=== PATIENT | male | born 1965 | race Caucasian/White ===

== ENCOUNTER 2017-02-19 15:58 | Inpatient (IN) | payer OTHER ==
[~2017-02-19] VITALS: Ht 180.3 cm; Wt 75.2 kg
[~2017-02-19 15:58] MED LIST: LISI-360 PO; LORTA5 PO; NEVI200 PO; PAXI20TA26 PO; VALA1TAB PO; ZYPR10TA PO; [UNRECOGNIZED DRUG - CODE]; trilipix; truvada PO
[2017-02-19 16:02] VITALS: BP 123/77; PULSE 110; RESP 16; TEMP 98; O2SAT 100
--- NOTE | 2017-02-19 16:40 | PD ---
Physical Exam Time Seen by Provider: 16:31 Narrative 51yo M c/o increased tremors, confusion, and difficulty finding words w/ worsening since Thursday. Is on psych medications that cause tremors; Seroquel and [place]. Denies pain including MADRID. Confused to year and month in triage. No midline drift, facial droop, and weakness noted in triage. Ambulatory w. normal gait in triage. Tremulous in triage. Patient seen in triage. VS reviewed. Awaiting bed placement. Data Data Last Documented VS Vital Signs Date Time Temp Pulse Resp B/P Pulse Ox O2 Delivery O2 Flow Rate FiO2 02/19/17 16:02 98.0 110 16 123/77 100 Room Air MDM Supervised Visit with YOLIS: Monie Rhoades Feb 19, 2017 16:40
[2017-02-19 17:16] VITALS: RESP 18; O2SAT 99
--- NOTE | 2017-02-19 17:16 | PD ---
HPI Chief Complaint: Altered Mental Status Time Seen by Provider: 17:16 Travel History International Travel<30 days: No Contact w/Intl Traveler<30days: No Traveled to known affect area: No History of Present Illness HPI 51-year-old male came to the emergency room with history of progressive incoordination and disequilibrium. Increase forgetfulness. All the symptoms have suddenly escalated over the past 3 days. Patient is noticing difficulty ambulating as well as doing simple activities like drinking water since he is spilling it since he is so shaky. His family is here with him raising concerns. He has history of psychiatric disorders and is on psych medications including lithium. Patient was tachycardic in the emergency room with his heart rate in 1 teens. Patient is awake and trying to answer questions but was very slow. [facility] Past Medical History Narrative Medical List of his past medical, surgical, social and family history was reviewed from the nursing note. Blood Disorders: No Anxiety: Yes Depression: Yes Cancer: Yes (skin cancer) Cardiovascular Problems: No Endocrine: No Genitourinary: No Immune Disorder: No (hivt) Neurologic: No Reproductive: No Respiratory: No Past Surgical History Oral Surgery: Yes (tonsillectomy and wisdom teeth removed) Social History Alcohol Use: Yes (wine occ several times per week) Tobacco Use: No Substance Use: No Allergies-Medications (Allergen,Severity, Reaction): Coded Allergies: No Known Allergies (Verified , 02/19/17) Comments No known drug allergies. Reported Meds & Prescriptions Reported Meds & Active Scripts Active Reported Viramune (Nevirapine) 200 Mg Tab 200 Mg PO BID Bupropion HCl ER 12 HR (Bupropion HCl) 100 Mg Tab 100 Mg PO DAILY May increase to twice a day if needed Hydrochlorothiazide 25 Mg Tab 12.5 Mg PO DAILY [trilipix] 135 Mg DAILY [truvada] PO DAILY Narrative Medication List of his home medications reviewed from the nursing note. Review of Systems Except as stated in HPI: all other systems reviewed are Neg Physical Exam Narrative GENERAL: Awake, alert, moderate distress SKIN: Focused skin assessment warm/dry. HEAD: Atraumatic. Normocephalic. EYES: Pupils equal and round. No scleral icterus. No injection or drainage. ENT: No nasal bleeding or discharge. Dry mucous membrane and coated tongue. NECK: Trachea midline. No JVD. CARDIOVASCULAR: Regular rate and rhythm. No murmur appreciated. RESPIRATORY: No accessory muscle use. Clear to auscultation. Breath sounds equal bilaterally. GASTROINTESTINAL: Abdomen soft, non-tender, nondistended. Hepatic and splenic margins not palpable. MUSCULOSKELETAL: No obvious deformities. No clubbing. No cyanosis. No edema. NEUROLOGICAL: Awake and alert. No obvious cranial nerve deficits. Motor grossly within normal limits. Normal speech. Poorly coordinated gait and ataxia. Poor finger-nose test bilaterally with bilateral ataxia. PSYCHIATRIC: Appropriate mood and affect; insight and judgment normal. Data Data Last Documented VS Vital Signs Date Time Temp Pulse Resp B/P Pulse Ox O2 Delivery O2 Flow Rate FiO2 02/19/17 17:16 18 99 Room Air 02/19/17 16:02 98.0 110 123/77 Orders Blood Glucose (02/19/17 16:37) Oximetry (02/19/17 16:37) Iv Access Insert/Monitor (02/19/17 16:37) Ecg Monitoring (02/19/17 16:37) Oxygen Administration (02/19/17 16:37) Complete Blood Count With Diff (02/19/17 16:37) Basic Metabolic Panel (Bmp) (02/19/17 16:37) Ammonia (02/19/17 16:37) Lactic Acid (02/19/17 16:37) Blood Culture (02/19/17 16:37) Urinalysis - C+S If Indicated (02/19/17 16:37) Act Partial Throm Time (Ptt) (02/19/17 16:37) Hepatic Functional Panel (02/19/17 17:28) [place] (Li) (02/19/17 17:28) Ct Brain W/O Iv Contrast(Rout) (02/19/17 ) Sodium Chlor 0.9% 1000 Ml Inj (Ns 1000 M (02/19/17 17:30) Sodium Chlor 0.9% 1000 Ml Inj (Ns 1000 M (02/19/17 17:30) Prothrombin Time / Inr (Pt) (02/19/17 17:28) Protein Corrected Calcium(Pcc) (02/19/17 16:55) Urinary Catheter Insert/Apply (02/19/17 18:26) Admit Order (Ed Use Only) (02/19/17 18:43) Labs Laboratory Tests Test 602/19/17 02/19/17 16:50 16:55 17:45 Urine Color YELLOW Urine Turbidity CLEAR Urine pH 6.5 Urine Specific [place] 1.014 Urine Protein 30 mg/dL Urine Glucose (UA) 300 mg/dL Urine Ketones NEG mg/dL Urine Occult Blood NEG Urine Nitrite NEG Urine Bilirubin NEG Urine Urobilinogen LESS THAN 2.0 MG/DL Urine Leukocyte Esterase NEG Urine RBC LESS THAN 1 /hpf Urine WBC 3 /hpf Urine Squamous Epithelial <1 /hpf Cells Microscopic Urinalysis Comment CULT NOT INDICATED White Blood Count 7.9 TH/MM3 Red Blood Count 4.22 MIL/MM3 Hemoglobin 14.5 GM/DL Hematocrit 43.1 % Mean Corpuscular Volume 102.1 FL Mean Corpuscular Hemoglobin 34.4 PG Mean Corpuscular Hemoglobin 33.7 % Concent Red Cell Distribution Width 12.8 % Platelet Count 343 TH/MM3 Mean Platelet Volume 7.1 FL Neutrophils (%) (Auto) 71.4 % Lymphocytes (%) (Auto) 18.9 % Monocytes (%) (Auto) 7.4 % Eosinophils (%) (Auto) 1.9 % Basophils (%) (Auto) 0.4 % Neutrophils # (Auto) 5.7 TH/MM3 Lymphocytes # (Auto) 1.5 TH/MM3 Monocytes # (Auto) 0.6 TH/MM3 Eosinophils # (Auto) 0.1 TH/MM3 Basophils # (Auto) 0.0 TH/MM3 CBC Comment DIFF FINAL Differential Comment Prothrombin Time 10.2 SEC Prothromb Time International 0.9 RATIO Ratio Activated Partial 27.3 SEC Thromboplast Time Sodium Level 130 MEQ/L Potassium Level 4.7 MEQ/L Chloride Level 95 MEQ/L Carbon Dioxide Level 25.9 MEQ/L Anion Gap 9 MEQ/L Blood Urea Nitrogen 114 MG/DL Creatinine 9.42 MG/DL Estimat Glomerular Filtration 6 ML/MIN Rate Random Glucose 112 MG/DL Lactic Acid Level 0.7 mmol/L Calcium Level 14.1 MG/DL Protein Corrected Calcium 12.8 MG/DL Total Bilirubin 0.3 MG/DL Direct Bilirubin 0.1 MG/DL Indirect Bilirubin 0.2 MG/DL Aspartate Amino Transf 21 U/L (AST/SGOT) Alanine Aminotransferase 39 U/L (ALT/SGPT) Alkaline Phosphatase 104 U/L Ammonia 21 MCMOL/L Total Protein 8.7 GM/DL Albumin 4.9 GM/DL [place] Level 2.9 MEQ/L MDM Medical Decision Making Medical Screen Exam Complete: Yes Emergency Medical Condition: Yes Medical Record Reviewed: Yes Differential Diagnosis Lifting toxicity, acute renal failure, dehydration, intracranial tumor, CVA Narrative Course 6:32 PM blood test results of back and patient is in acute renal failure. My suspicion is extremely high for lithium toxicity. Waiting for lithium level to return. Patient is hyponatremic, hypochloremic and hypocalcemic. I just spoke with Dr. Chino from nephrology and have requested for an emergent dialysis. He wants the batch freezer to get an access. He will put the orders for dialysis. Awaiting for the batch freezer to call back. I have asked the nurse to put in a Mcgee catheter. Critical Care Narrative Aggregate critical care time was 45 minutes. Time to perform other separately billable procedures was not included in the critical care time. My time did not include minutes spent treating any other patients simultaneously or on activities that did not directly contribute to the patient's treatment. The services I provided to this patient were to treat and/or prevent clinically significant deterioration that could result in: Acute renal failure, lithium toxicity, hypercalcemia, dialysis I provided critical care services requiring my management, as noted below: Chart data review, documentation time, medication orders and management, vital sign assessments/reviewing monitor data, ordering and reviewing lab tests, ordering and interpreting/reviewing x-rays and diagnostic studies, care of the patient and discussion of the patient with the admitting physicians. Procedures EKG Prior to Arrival: No Physician Communication Physician Communication Dr. Chino Diagnosis Primary Impression: Acute renal failure Qualified Code: N17.9 - Acute renal failure, unspecified acute renal failure type Additional Impressions: Gait disturbance [place] toxicity Qualified Code: T56.894A - [place] toxicity, undetermined intent, initial encounter Hypercalcemia Hyponatremia Admitting Information Admitting Physician Requests: it Lucila Moseley MD Feb 19, 2017 17:16
[2017-02-19 17:24] LABS: AUTOMATED NEUTROPHIL # 5.7 TH/MM3 (1.8-7.7); BASOPHIL % 0.4 % (0.0-2.0); EOSINOPHIL # 0.1 TH/MM3 (0-0.4); EOSINOPHIL % 1.9 % (0.0-4.0); HEMATOCRIT 43.1 % (39.0-51.0); HEMO FLAGS DIFF FINAL; LYMPH % 18.9 % (9.0-44.0); LYMPHOCYTE # 1.5 TH/MM3 (1.0-4.8); MEAN CELL VOLUME 102.1 FL (80.0-100.0); MEAN CORPUSCULAR HEMOGLOBIN 34.4 PG (27.0-34.0); MEAN CORPUSCULAR HGB CONC 33.7 % (32.0-36.0); MONO % 7.4 % (0.0-8.0); NEUT % 71.4 % (16.0-70.0); PLATELET COUNT 343 TH/MM3 (150-450); RED BLOOD COUNT 4.22 MIL/MM3 (4.50-5.90); RED CELL DISTRIBUTION WIDTH 12.8 % (11.6-17.2); WHITE BLOOD COUNT 7.9 TH/MM3 (4.0-11.0)
[2017-02-19] MEDS ORDERED: SODIUM CHLOR 0.9% 1000 ML INJ 1,000 ML IV ONE ×2 (17:30)
[2017-02-19 17:34] LABS: BLOOD, URINE NEG (NEG); COMMENT (UR) CULT NOT INDICATED; CULTURE IF INDICATED CULT NOT INDICATED; GLUCOSE,URINE 300 mg/dL (NEG); KETONE, URINE NEG (NEG); NITRITE,URINE NEG (NEG); PH, URINE 6.5 (5.0-8.5); SQUAMOUS EPITHELIAL CELL URINE <1 /hpf (0-5); URINE COLOR YELLOW (YELLW/STRAW)
[2017-02-19 17:39] LABS: APTT (PATIENT) 27.3 SEC (24.3-30.1)
[2017-02-19 17:57] LABS: INTERNATIONAL NORMALIZED RATIO 0.9 RATIO; PROTHROMBIN TIME - PATIENT 10.2 SEC (9.8-11.6)
[2017-02-19 18:04] LABS: BICARBONATE 25.9 MEQ/L (21.0-32.0); POTASSIUM 4.7 MEQ/L (3.5-5.1)
[2017-02-19] MEDS ORDERED: LISI10TA3 PO (18:18)
[2017-02-19] MEDS ORDERED: HYDR25TA5 PO (18:18)
[2017-02-19] MEDS ORDERED: BUPR100T PO (18:18)
[2017-02-19] MEDS ORDERED: VIRA200T PO (18:19)
[2017-02-19 18:25] LABS: INDIRECT BILIRUBIN 0.2 MG/DL (0.0-0.8); TOTAL BILIRUBIN ADULT 0.3 MG/DL (0.2-1.0)
[2017-02-19 18:28] LABS: CALCIUM-PROTEIN CORRECTED 12.8 MG/DL (8.5-10.1)
[2017-02-19] MEDS ORDERED: SODIUM CHLOR 0.9% 1000 ML INJ 1,000 ML IV PRN ×3 (18:48)
[2017-02-19] MEDS ORDERED: SODIUM CHLORIDE 0.9% FLUSH 10 ML FLUSH IV FLUSH PRN (19:00)
[2017-02-19] MEDS ORDERED: ALBUMIN HUMAN 25% 25 GM/100 ML BAGP IV PRN (19:00)
[2017-02-19] MEDS ORDERED: GELATIN 12 MM/7 MM FOAM TOP PRN (19:00)
[2017-02-19] MEDS ORDERED: MANNITOL 12.5 GM/50 ML VIAL IV PRN (19:00)
[2017-02-19] MEDS ORDERED: diphenhydrAMINE HCL 25 MG CAP PO PRN (19:00)
[2017-02-19] MEDS ORDERED: ONDANSETRON HCL 4 MG/2 ML VIAL IV PRN ×2 (19:00→19:15)
[2017-02-19] MEDS ORDERED: HEPARIN SODIUM - IV 10,000 UNITS/10 ML VIAL PRN (19:00)
[2017-02-19] MEDS ORDERED: NITROGLYCERIN 0.4 MG SL 25 TABS/BTL SL PRN (19:00)
[2017-02-19] MEDS ORDERED: ACETAMINOPHEN 325 MG TAB PO PRN ×2 (19:00→19:15)
[2017-02-19] MEDS ORDERED: cloNIDine HCL 0.1 MG TAB PO PRN (19:00)
[2017-02-19] MEDS ORDERED: HEPARIN SODIUM - IV 10,000 UNITS/10 ML VIAL IVF PRN (19:00)
[2017-02-19] MEDS ORDERED: GENTAMICIN SULFATE (DIALYSIS USE ONLY) 20 MG/2 ML VIAL IV PRN (19:00)
--- NOTE | 2017-02-19 19:00 | PD.CONS ---
HPI Service Nephrology Consult Requested By Dr. Moseley Reason for Consult [place] toxicity and renal failure Primary Care Physician Taz Gray MD History of Present Illness Patient is a 51-year-old white male with history of psychiatric disorders, on lithium, for 3 days he has been feeling "shaky unable to grab a glass of water and unable to eat or drink probably he was unable to stand he has severe disequilibrium and brought to the emergency room with these complaints, his lithium level is 2.9, he has tremulousness and all the extremities are shaking while he is laying in the bed the he was earlier confused he is more alert and able to tell me his age. Review of Systems Neurologic: COMPLAINS OF: Abnormal gait, Speech Problems, Tremor, Poor Balance Psychiatric: COMPLAINS OF: Anxiety, Depression, Agitation Past Family Social History Allergies: Coded Allergies: No Known Allergies (Verified , 02/19/17) Past Medical History Psychiatric disorder HIV Past Surgical History Laminectomy [place] tooth removal Tonsillectomy Reported Medications Reported Meds & Active Scripts Active Reported Viramune (Nevirapine) 200 Mg Tab 200 Mg PO BID Bupropion HCl ER 12 HR (Bupropion HCl) 100 Mg Tab 100 Mg PO DAILY May increase to twice a day if needed Hydrochlorothiazide 25 Mg Tab 12.5 Mg PO DAILY [trilipix] 135 Mg DAILY [truvada] PO DAILY Family History Noncontributory Social History He drinks wine 3 times a week Denies smoking Physical Exam Vital Signs Vital Signs Date Time Temp Pulse Resp B/P Pulse Ox O2 Delivery O2 Flow Rate FiO2 02/19/17 17:16 18 99 Room Air 02/19/17 17:16 99 Room Air 02/19/17 16:02 98.0 110 16 123/77 100 Room Air Physical Exam GENERAL: Well-nourished, well-developed patient. SKIN: Warm and dry. HEAD: Normocephalic. EYES: No scleral icterus. No injection or drainage. NECK: Supple, trachea midline. No JVD or lymphadenopathy. CARDIOVASCULAR: Tachycardic RESPIRATORY: Breath sounds equal bilaterally. No accessory muscle use. GASTROINTESTINAL: Abdomen soft, non-tender, nondistended. EXTREMITIES: No cyanosis, or edema. NEUROLOGICAL: Awake, alert, tremulousness, tremors all over extremities Laboratory Laboratory Tests Test 02/19/17 02/19/17 02/19/17 16:50 16:55 17:45 Urine Color YELLOW Urine Turbidity CLEAR Urine pH 6.5 Urine Specific [place] 1.014 Urine Protein 30 Urine Glucose (UA) 300 Urine Ketones NEG Urine Occult Blood NEG Urine Nitrite NEG Urine Bilirubin NEG Urine Urobilinogen LESS THAN 2.0 Urine Leukocyte Esterase NEG Urine RBC LESS THAN 1 Urine WBC 3 Urine Squamous Epithelial <1 Cells Microscopic Urinalysis Comment CULT NOT INDICATED White Blood Count 7.9 Red Blood Count 4.22 Hemoglobin 14.5 Hematocrit 43.1 Mean Corpuscular Volume 102.1 Mean Corpuscular Hemoglobin 34.4 Mean Corpuscular Hemoglobin 33.7 Concent Red Cell Distribution Width 12.8 Platelet Count 343 Mean Platelet Volume 7.1 Neutrophils (%) (Auto) 71.4 Lymphocytes (%) (Auto) 18.9 Monocytes (%) (Auto) 7.4 Eosinophils (%) (Auto) 1.9 Basophils (%) (Auto) 0.4 Neutrophils # (Auto) 5.7 Lymphocytes # (Auto) 1.5 Monocytes # (Auto) 0.6 Eosinophils # (Auto) 0.1 Basophils # (Auto) 0.0 CBC Comment DIFF FINAL Differential Comment Prothrombin Time 10.2 Prothromb Time International 0.9 Ratio Activated Partial 27.3 Thromboplast Time Sodium Level 130 Potassium Level 4.7 Chloride Level 95 Carbon Dioxide Level 25.9 Anion Gap 9 Blood Urea Nitrogen 114 Creatinine 9.42 Estimat Glomerular Filtration 6 Rate Random Glucose 112 Lactic Acid Level 0.7 Calcium Level 14.1 Protein Corrected Calcium 12.8 Total Bilirubin 0.3 Direct Bilirubin 0.1 Indirect Bilirubin 0.2 Aspartate Amino Transf 21 (AST/SGOT) Alanine Aminotransferase 39 (ALT/SGPT) Alkaline Phosphatase 104 Ammonia 21 Total Protein 8.7 Albumin 4.9 [place] Level 2.9 Date/Time Procedure Status Source Growth 02/19/17 17:00 Aerobic Blood Culture Received Blood Peripheral Pending 02/19/17 17:00 Anaerobic Blood Culture Received Blood Peripheral Pending Result Diagram: 02/19/[id number]/19/171654 Assessment and Plan Problem List: (1) Acute renal failure Plan: ARF Unknown etiology he appears to be dehydrated getting hydration, will check kidney ultrasound He needs emergent hemodialysis as he has lithium toxicity and his symptomatic, I discussed with him he is now alert and responsive understands the procedure and Agreed to proceed with hemodialysis. I discussed with Dr. Dela Cruz and Dr. Moseley. 10 pm seen during hemodialysis tolerating [place] 2.9 ordered F 20 QB 400 Follow [place] level (2) [place] toxicity Plan: Admission lithium level 2.9 (3) Hyponatremia Plan: Likely due to renal failure and lithium toxicity (4) Gait disturbance Plan: [place] toxicity (5) Hypercalcemia Plan: likely dehydration Problem Qualifiers (1) Acute renal failure: Qualified Code: N17.9 - Acute renal failure, unspecified acute renal failure type (2) [place] toxicity: Qualified Code: T56.894A - [place] toxicity, undetermined intent, initial encounter Liyah Marin MD Feb 19, 2017 19:00
[2017-02-19] MEDS ORDERED: MORPHINE SULFATE 4 MG/ML INJ IV PRN (19:15)
[2017-02-19] MEDS ORDERED: ZOLPIDEM TARTRATE 5 MG TAB PO PRN (19:15)
[2017-02-19] MEDS ORDERED: SODIUM CHLORIDE 0.9% FLUSH 10 ML FLUSH PRN (19:15)
[2017-02-19] MEDS ORDERED: LACTULOSE SYRUP 20 GM/30 ML CUP PO PRN (19:15)
[2017-02-19] MEDS ORDERED: SENNOSIDES 8.6 MG TAB PO PRN (19:15)
[2017-02-19] MEDS ORDERED: MISCELLANEOUS NURSING INFORMATION XX SCH (19:15)
[2017-02-19] MEDS ORDERED: METOCLOPRAMIDE HCL 10 MG/2 ML VIAL IV PRN (19:15)
[2017-02-19] MEDS ORDERED: MAGNESIUM HYDROXIDE SUSP 30 ML CUP PO PRN (19:15)
[2017-02-19] MEDS ORDERED: RESP: ALBUTEROL 2.5 MG/IPRATROPIUM 0.5 MG NEB (PRN) INH (19:15)
[2017-02-19] MEDS ORDERED: PROCHLORPERAZINE 25 MG SUPP RECTAL PRN (19:15)
[2017-02-19] MEDS ORDERED: BISACODYL 10 MG SUPP RECTAL PRN (19:15)
[2017-02-19] MEDS ORDERED: LORazepam 2 MG/ML VIAL IV PRN (19:15)
[2017-02-19] MEDS ORDERED: CHLORHEXIDINE GLUCONATE 2 % 1 PACK (2 CLOTHS) TOP PRN (19:15)
--- NOTE | 2017-02-19 19:23 | RADRPT ---
EXAM DATE/TIME: 02/19/2017 19:05 [facility] COMPARISON: No previous studies available for comparison. INDICATIONS : Altered mental status. Difficulty ambulating and tremors. RADIATION DOSE: 42.47 CTDIvol (mGy) MEDICAL HISTORY : Hypertension. HIV. Kidney failure. SURGICAL HISTORY : None. ENCOUNTER: Initial ACUITY: 1 day PAIN SCALE: 0/10 LOCATION: cranial TECHNIQUE: Multiple contiguous axial images were obtained of the head. Using automated exposure control and adj ustment of the mA and/or kV according to patient size, radiation dose was kept as low as reasonably a chievable to obtain optimal diagnostic quality images. FINDINGS: CEREBRUM: The ventricles are normal for age. No evidence of midline shift, mass lesion, hemorrhage or acute in farction. No extra-axial fluid collections are seen. POSTERIOR FOSSA: The cerebellum and brainstem are intact. The 4th ventricle is midline. The cerebellopontine angle i s unremarkable. EXTRACRANIAL: The visualized portion of the orbits is intact. SKULL: The calvaria is intact. No evidence of skull fracture. CONCLUSION: Negative noncontrast head CT. Unruly Valera MD on February 19, 2017 at 19:21 Board Certified Radiologist. This report was verified electronically.
[2017-02-19 19:32] VITALS: BP 117/86; PULSE 97; RESP 24; TEMP 98.1; O2SAT 99
--- NOTE | 2017-02-19 19:53 | RADRPT ---
EXAM DATE/TIME: 02/19/2017 19:13 [facility] COMPARISON: No previous studies available for comparison. INDICATIONS : Increased BUN/creatinine. MEDICAL HISTORY : Head trauma. HTN. Tremors. Gait problems. Bipolar disorder. Depression. Anxiety. Skin cancer. HIV+. SURGICAL HISTORY : Tonsillectomy. Laminecotmy. ENCOUNTER: Initial ACUITY: 1 day PAIN SCORE: 0/10 LOCATION: Bilateral flank MEASUREMENTS: RIGHT KIDNEY: 10.8 x 4.4 x 5.8 cm LEFT KIDNEY: 11.0 x 5.0 x 5.8 cm FINDINGS: RIGHT KIDNEY: Renal cortex is normal in thickness and echotexture. No hydronephrosis, stone, or mass. LEFT KIDNEY: Renal cortex is normal in thickness and echotexture. No hydronephrosis, stone, or mass. BLADDER: Mcgee. Grossly unremarkable. CONCLUSION: Renal ultrasound within normal limits. Unruly Valera MD on February 19, 2017 at 19:51 Board Certified Radiologist. This report was verified electronically.
[2017-02-19] MEDS: SODIUM CHLOR 0.9% 1000 ML INJ 1,000 ML IV SCH (19:54)
[2017-02-19 20:42] VITALS: BP 130/78; PULSE 95; RESP 16; O2SAT 100
--- NOTE | 2017-02-19 20:56 | RADRPT ---
EXAM DATE/TIME: 02/19/2017 20:36 [facility] COMPARISON: No previous studies available for comparison. INDICATIONS : Dialysis jugular placement. MEDICAL HISTORY : Head trauma. HTN. Tremors. Gait problems. Bipolar disorder. Depression.Anxiety. Skin cancer. HIV+. SURGICAL HISTORY : Tonsillectomy. Laminecotmy. ENCOUNTER: Initial ACUITY: 1 day PAIN SCORE: 0/10 LOCATION: Bilateral chest FINDINGS: A single view of the chest demonstrates the lungs to be symmetrically aerated without evidence of mas s, infiltrate or effusion. The cardiomediastinal contours are unremarkable. Osseous structures are intact. There is a right internal jugular large caliber central venous catheter with tip in the superior vena cava. CONCLUSION: Right IJ line tip is in the superior vena cava. No evidence of acute cardiopulmonary disease. No pneu mothorax or other acute complication demonstrated. Unruly Valera MD on February 19, 2017 at 20:53 Board Certified Radiologist. This report was verified electronically.
[2017-02-19 21:00] VITALS: BP 131/81; PULSE 92; PULSE 94; RESP 22; TEMP 98.3; O2SAT 97
[2017-02-19] MEDS: SODIUM CHLORIDE 0.9% FLUSH 10 ML FLUSH SCH (21:00)
[2017-02-19] MEDS: DOCUSATE SODIUM 50 MG/SENNA 8.6 MG TAB PO SCH (21:00)
--- NOTE | 2017-02-19 21:27 | HHI.HP ---
[facility] Service Critical Care Medicine Primary Care Physician Tza Gray MD Admission Diagnosis acute renal failure, lithium toxicity Diagnosis: Travel History International Travel<30 Days: No Contact w/Intl Traveler <30 Da: No Traveled to Known Affected Are: No History of Present Illness 51-year-old male came to the emergency room with history of progressive incoordination and disequilibrium. Increase forgetfulness. All the symptoms have suddenly escalated over the past 3 days. Patient has been noticing difficulty ambulating as well as doing simple activities like drinking water since he is spilling it since he is so shaky. In the emergency department he was found to be tachycardic, and shivering. His laboratory workup revealed acute kidney failure with creatinine of 9 and elevated lithium level. He is admitted to critical care unit, dialysis catheter was placed emergently and patient is undergoing urgent hemodialysis. Review of Systems Constitutional: DENIES: Diaphoretic episodes, Fatigue, Fever, Weight gain, Weight loss, Chills, Dizziness, Change in appetite, Night Sweats Endocrine: DENIES: Heat/cold intolerance, Polydipsia, Polyuria, Polyphagia Eyes: DENIES: Blurred vision, Diplopia, Eye inflammation, Eye pain, Vision loss , Photosensitivity, Double Vision Ears, nose, mouth, throat: DENIES: Tinnitus, Hearing loss, Vertigo, Nasal discharge, Oral lesions, Throat pain, Hoarseness, Ear Pain, Running Nose, Epistaxis, Sinus Pain, Toothache, Odynophagia Respiratory: DENIES: Apneas, Cough, Snoring, Wheezing, Hemoptysis, Sputum production, Shortness of breath Cardiovascular: DENIES: Chest pain, Palpitations, Syncope, Dyspnea on Exertion , PND, Lower Extremity Edema, Orthopnea, Claudication Gastrointestinal: DENIES: Abdominal pain, Black stools, Bloody stools, Constipation, Diarrhea, Nausea, Vomiting, Difficulty Swallowing, Anorexia Genitourinary: DENIES: Sexual dysfunction, Urinary frequency, Urinary incontinence, Urgency, Hematuria, Dysuria, Nocturia, Penile Discharge, Testicular Pain, Testicular Swelling Musculoskeletal: DENIES: Joint pain, Muscle aches, Stiffness, Joint Swelling, Back pain, Neck pain Integumentary: DENIES: Abnormal pigmentation, Nail changes, Pruritus, Rash Hematologic/lymphatic: DENIES: Bruising, Lymphadenopathy Immunologic/allergic: DENIES: Eczema, Urticaria Neurologic: COMPLAINS OF: Abnormal gait, Tremor, Poor Balance, DENIES: Headache, Localized weakness, Paresthesias, Seizures, Speech Problems Psychiatric: COMPLAINS OF: Depression, DENIES: Anxiety, Confusion, Mood changes, Hallucinations, Agitation, Suicidal Ideation, Homicidal Ideation, Delusions Past Family Social History Allergies: Coded Allergies: No Known Allergies (Verified , 02/19/17) Past Medical History Depressions Anxiety Dyslipidemia Hypertension HIV Past Surgical History [place] teeth removal Tonsillectomy Reported Medications Reported Meds & Active Scripts Active Reported Viramune (Nevirapine) 200 Mg Tab 200 Mg PO BID Bupropion HCl ER 12 HR (Bupropion HCl) 100 Mg Tab 100 Mg PO DAILY May increase to twice a day if needed Hydrochlorothiazide 25 Mg Tab 12.5 Mg PO DAILY [trilipix] 135 Mg DAILY [truvada] PO DAILY Active Ordered Medications Current Medications Medications (Trade) Dose Ordered Sig/Mitra Route PRN Reason Start Time Stop Time Status Last Admin Dose Admin Sodium Chloride (NS 1000 ml Inj) 1,000 ml @ 0 mls/hr Q0M PRN IV For Prime & Rinse Back 02/19/17 18:48 Heparin Sodium (Porcine) 8000 units 8,000 units UNSCH PRN IVF WITH DIALYSIS 02/19/17 19:00 Sodium Chloride 1,000 ml @ 200 mls/hr Q5H PRN IV WITH DIALYSIS 02/19/17 18:48 Sodium Chloride (NS 1000 ml Inj) 1,000 ml @ 0 mls/hr Q0M PRN IV WITH DIALYSIS 02/19/17 18:48 Mannitol (Mannitol Inj) 12.5 gm UNSCH PRN IV WITH DIALYSIS 02/19/17 19:00 Albumin Human (Albumin 25% Inj) 25 gm UNSCH PRN IV WITH DIALYSIS 02/19/17 19:00 Sodium Chloride (NS Flush) 5 ml UNSCH PRN IV FLUSH WITH DIALYSIS 02/19/17 19:00 Heparin Sodium (Porcine) (Heparin Inj) UNSCH PRN .XX WITH DIALYSIS 02/19/17 19:00 Gentamicin Sulfate (Gentamicin (Dialysis) Inj) 20 mg UNSCH PRN IV WITH DIALYSIS 02/19/17 19:00 Ondansetron HCl (Zofran Inj) 4 mg UNSCH PRN IV WITH DIALYSIS 02/19/17 19:00 Acetaminophen (Tylenol) 650 mg UNSCH PRN PO for MADRID, pain, temp > 101F 02/19/17 19:00 Diphenhydramine HCl (Benadryl) 25 mg UNSCH PRN PO for hives/itching/anaphylaxis 02/19/17 19:00 Nitroglycerin (Nitrostat Sl) 0.4 mg UNSCH PRN SL CHEST PAIN 02/19/17 19:00 Clonidine (Catapres) 0.1 mg UNSCH PRN PO for BP > 180/100 X 2 readings 02/19/17 19:00 Gelatin 1 foam 1 foam UNSCH PRN TOP SEE LABEL COMMENTS 02/19/17 19:00 Sodium Chloride (NS 1000 ml Inj) 1,000 ml @ 84 mls/hr [id number] IV 02/19/17 19:02 02/19/17 19:54 Sodium Chloride (NS Flush) 2 ml UNSCH PRN .XX FLUSH AFTER USING IV ACCESS 02/19/17 19:15 Sodium Chloride (NS Flush) 2 ml BID .XX 02/19/17 21:00 Acetaminophen (Tylenol) 650 mg Q6H PRN PO PAIN 1-5 AND/OR FEVER >101F 02/19/17 19:15 Morphine Sulfate (Morphine Inj) 2 mg Q2H PRN IV PAIN SCALE 6 TO 10 02/19/17 19:15 Famotidine (Pepcid Inj) 10 mg Q12HR IV PUSH 02/19/17 21:00 Lorazepam (Ativan Inj) 1 mg Q1H PRN IV Agitation/Sedation 02/19/17 19:15 Ondansetron HCl (Zofran Inj) 4 mg Q6H PRN IV NAUSEA OR VOMITING 02/19/17 19:15 Metoclopramide HCl (Reglan Inj) 10 mg Q6H PRN IV NAUSEA OR VOMITING 02/19/17 19:15 Prochlorperazine (Compazine Supp) 25 mg Q12H PRN RECTAL NAUSEA OR VOMITING 02/19/17 19:15 Zolpidem Tartrate (Ambien) 5 mg HS PRN PO INSOMNIA 02/19/17 19:15 Heparin Sodium (Porcine) (Heparin Inj) 5,000 units Q12HR SQ 02/19/17 21:00 Miscellaneous Information 1 [id number] XX 02/19/17 19:15 Chlorhexidine Gluconate (Chlorhexidine 2% Cloth) 3 pack Taper DAILY@04 TOP 02/20/17 04:00 02/16/18 03:59 Chlorhexidine Gluconate (Chlorhexidine 2% Cloth) 3 pack UNSCH PRN TOP HYGIENIC CARE 02/19/17 19:15 Senna/Docusate Sodium (Taisha-Colace) 1 tab BID PO 02/19/17 21:00 Magnesium Hydroxide (Milk Of Magnesia Liq) 30 ml Q12H PRN PO MILD - MODERATE CONSTIPATION 02/19/17 19:15 Sennosides (Senokot) 17.2 mg Q12H PRN PO MODERATE - SEVERE CONSTIPATION 02/19/17 19:15 Bisacodyl (Dulcolax Supp) 10 mg DAILY PRN RECTAL SEVERE CONSITIPATION 02/19/17 19:15 Lactulose (Lactulose Liq) 30 ml DAILY PRN PO SEVERE CONSITIPATION 02/19/17 19:15 Family History Noncontributory Social History Negative for tobacco alcohol or illicit drug abuse Physical Exam Vital Signs Vital Signs Date Time Temp Pulse Resp B/P Pulse Ox O2 Delivery O2 Flow Rate FiO2 02/19/17 20:42 95 16 130/78 100 Room Air 02/19/17 19:32 98.1 97 24 117/86 99 Room Air 02/19/17 17:16 18 99 Room Air 02/19/17 17:16 99 Room Air 02/19/17 16:02 98.0 110 16 123/77 100 Room Air Physical Exam GENERAL: Well-nourished, well-developed patient. SKIN: Warm and dry. HEAD: Normocephalic. EYES: No scleral icterus. No injection or drainage. NECK: Supple, trachea midline. No JVD or lymphadenopathy. CARDIOVASCULAR: Regular rate and rhythm without murmurs, gallops, or rubs. RESPIRATORY: Breath sounds equal bilaterally. No accessory muscle use. GASTROINTESTINAL: Abdomen soft, non-tender, nondistended. MUSCULOSKELETAL: No cyanosis, or edema. BACK: Nontender without obvious deformity. No CVA tenderness. EXTREMITIES: No clubbing cyanosis or edema Laboratory Laboratory Tests Test 02/19/17 02/19/17 02/19/17 16:50 16:55 17:45 Urine Color YELLOW Urine Turbidity CLEAR Urine pH 6.5 Urine Specific [place] 1.014 Urine Protein 30 Urine Glucose (UA) 300 Urine Ketones NEG Urine Occult Blood NEG Urine Nitrite NEG Urine Bilirubin NEG Urine Urobilinogen LESS THAN 2.0 Urine Leukocyte Esterase NEG Urine RBC LESS THAN 1 Urine WBC 3 Urine Squamous Epithelial <1 Cells Microscopic Urinalysis Comment CULT NOT INDICATED White Blood Count 7.9 Red Blood Count 4.22 Hemoglobin 14.5 Hematocrit 43.1 Mean Corpuscular Volume 102.1 Mean Corpuscular Hemoglobin 34.4 Mean Corpuscular Hemoglobin 33.7 Concent Red Cell Distribution Width 12.8 Platelet Count 343 Mean Platelet Volume 7.1 Neutrophils (%) (Auto) 71.4 Lymphocytes (%) (Auto) 18.9 Monocytes (%) (Auto) 7.4 Eosinophils (%) (Auto) 1.9 Basophils (%) (Auto) 0.4 Neutrophils # (Auto) 5.7 Lymphocytes # (Auto) 1.5 Monocytes # (Auto) 0.6 Eosinophils # (Auto) 0.1 Basophils # (Auto) 0.0 CBC Comment DIFF FINAL Differential Comment Prothrombin Time 10.2 Prothromb Time International 0.9 Ratio Activated Partial 27.3 Thromboplast Time Sodium Level 130 Potassium Level 4.7 Chloride Level 95 Carbon Dioxide Level 25.9 Anion Gap 9 Blood Urea Nitrogen 114 Creatinine 9.42 Estimat Glomerular Filtration 6 Rate Random Glucose 112 Lactic Acid Level 0.7 Calcium Level 14.1 Protein Corrected Calcium 12.8 Total Bilirubin 0.3 Direct Bilirubin 0.1 Indirect Bilirubin 0.2 Aspartate Amino Transf 21 (AST/SGOT) Alanine Aminotransferase 39 (ALT/SGPT) Alkaline Phosphatase 104 Ammonia 21 Total Protein 8.7 Albumin 4.9 [place] Level 2.9 Date/Time Procedure Status Source Growth 02/19/17 17:00 Aerobic Blood Culture Received Blood Peripheral Pending 02/19/17 17:00 Anaerobic Blood Culture Received Blood Peripheral Pending Result Diagram: 02/19/17 1655 02/19/17 1655 Imaging Last 24 hours Impressions Chest X-Ray 02/19/172030 Signed Impressions: Service Date/Time: February 20:36 - CONCLUSION: Right IJ line tip is in the superior vena cava. No evidence of acute cardiopulmonary disease. No pneumothorax or other acute complication demonstrated. Unruly Valera MD Renal Ultrasound 02/19/17 0000 Signed Impressions: Service Date/Time: February 19:13 - CONCLUSION: Renal ultrasound within normal limits. Unruly Valera MD Head CT 02/19/17 0000 Signed Impressions: Service Date/Time: February 19:05 - CONCLUSION: Negative noncontrast head CT. Unruly Valera MD Assessment and Plan Assessment and Plan Acute renal failure - Ultrasound-negative - Likely dehydration - Nephrology consult appreciated - Hemodialysis per above [place] toxicity - Emergent HD Hypertension - Hold diuretics due to acute kidney injury - Currently normotensive HIV - Resume Nevirapine on discharge DVT GI prophylaxis - Subcutaneous heparin teds SCDs - Early aggressive mobilization - Pepcid Critical Care: The total critical care time was 35 minutes. Time to perform other separately billable procedures was not included in the critical care time. Everardo Dela Cruz MD Feb 19, 2017 21:27
--- NOTE | 2017-02-19 21:28 | PD.PROCEDR ---
Procedure Note Procedure Hemodialysis catheter insertion A time-out was completed verifying correct patient, procedure, site, positioning , and special equipment if applicable. The patient was placed in a dependent position appropriate for central line placement based on the vein to be cannulated. The patients right neck was prepped and draped in sterile fashion. 1% Lidocaine was used to anesthetize the surrounding skin area. A double lumen hemodialysis catheter was introduced into the the internal jugular vein using the Seldinger technique and under ultrasound guidance. The catheter was threaded smoothly over the guide wire and appropriate blood return was obtained. Each lumen of the catheter was evacuated of air and flushed with sterile saline. The catheter was then sutured in place to the skin and a sterile dressing applied. Perfusion to the extremity distal to the point of catheter insertion was checked and found to be adequate. Estimated Blood Loss: 1ml The patient tolerated the procedure well and there were no complications. Everardo Dela Cruz MD Feb 19, 2017 21:28
[2017-02-19 22:00] VITALS: PULSE 96
[2017-02-19] MEDS: HEPARIN SODIUM - SQ 10,000 UNITS/ML VIAL SQ SCH (23:52)
[2017-02-19] MEDS: FAMOTIDINE 20 MG/2 ML VIAL IV PUSH SCH (23:52)
[2017-02-20] VITALS (14 sets, daily range): BP systolic 114–159; BP diastolic 64–92; PULSE 90–115; RESP 18–32; TEMP 97.8–98.3; O2SAT 94–99
[2017-02-20] MEDS: CHLORHEXIDINE GLUCONATE 2 % 1 PACK (2 CLOTHS) TOP SCH (04:00)
[2017-02-20 05:45] LABS: AUTOMATED NEUTROPHIL # 3.1 TH/MM3 (1.8-7.7); BASOPHIL % 0.2 % (0.0-2.0); EOSINOPHIL # 0.1 TH/MM3 (0-0.4); EOSINOPHIL % 2.3 % (0.0-4.0); HEMATOCRIT 35.8 % (39.0-51.0); HEMO FLAGS DIFF FINAL; LYMPH % 26.9 % (9.0-44.0); LYMPHOCYTE # 1.3 TH/MM3 (1.0-4.8); MEAN CELL VOLUME 102.3 FL (80.0-100.0); MEAN CORPUSCULAR HGB CONC 33.3 % (32.0-36.0); MONO % 9.1 % (0.0-8.0); NEUT % 61.5 % (16.0-70.0); PLATELET COUNT 232 TH/MM3 (150-450); RED BLOOD COUNT 3.51 MIL/MM3 (4.50-5.90); RED CELL DISTRIBUTION WIDTH 12.4 % (11.6-17.2)
[2017-02-20 05:55] LABS: PROTHROMBIN TIME - PATIENT 10.9 SEC (9.8-11.6)
[2017-02-20 06:16] LABS: ALT (GPT) 28 U/L (12-78); ANION GAP 8 MEQ/L (5-15); AST (GOT) 15 U/L (15-37); BICARBONATE 28.3 MEQ/L (21.0-32.0); BLOOD UREA NITROGEN 51 MG/DL (7-18); CHLORIDE 103 MEQ/L (98-107); GLOMERULAR FILTRATION RATE 13 ML/MIN (>89); MAGNESIUM 2.2 MG/DL (1.5-2.5); POTASSIUM 3.9 MEQ/L (3.5-5.1); SODIUM (NA) 139 MEQ/L (136-145)
[2017-02-20 06:21] LABS: ALKALINE PHOSPHATASE 83 U/L (45-117); TOTAL BILIRUBIN ADULT 0.5 MG/DL (0.2-1.0)
[2017-02-20] MEDS: SODIUM CHLOR 0.9% 1000 ML INJ 1,000 ML IV SCH (06:57)
[2017-02-20] MEDS: FAMOTIDINE 20 MG/2 ML VIAL IV PUSH SCH ×2 (08:57→21:40)
[2017-02-20] MEDS: SODIUM CHLORIDE 0.9% FLUSH 10 ML FLUSH SCH ×2 (08:57→21:41)
[2017-02-20] MEDS: HEPARIN SODIUM - SQ 10,000 UNITS/ML VIAL SQ SCH ×2 (08:57→21:41)
[2017-02-20] MEDS: DOCUSATE SODIUM 50 MG/SENNA 8.6 MG TAB PO SCH ×2 (08:57→21:41)
--- NOTE | 2017-02-20 11:36 | HHI.NPPN ---
Subjective History of Present Illness 51 year old male with [place] toxicity ARF Additional Remarks hemodialysis done last night doing better Review of Systems General Constitutional: Fatigue Objective Data Data 02/19/17 02/20/17 19:00 07:00 Intake Total 1027 ml Output Total 2250 ml Balance -1223 ml Intake Oral 240 ml IV Total 787 ml Output Urine Total 1250 ml Hemodialysis 1000 ml Vital Signs Date Time Temp Pulse Resp B/P Pulse Ox O2 Delivery O2 Flow Rate FiO2 02/20/17 10:00 93 02/20/17 08:40 98 21 02/20/17 08:00 94 02/20/17 08:00 98.2 93 18 130/80 98 02/20/17 07:00 Room Air 21 02/20/17 06:00 96 02/20/17 04:00 98.2 94 20 121/75 99 02/20/17 04:00 94 02/20/17 02:00 98 02/20/17 02:00 96 02/20/17 00:00 104 02/20/17 00:00 98.3 104 26 114/64 97 02/19/17 22:00 96 02/19/17 21:00 98.3 92 22 131/81 97 02/19/17 21:00 94 02/19/17 20:42 95 16 130/78 100 Room Air 02/19/17 19:32 98.1 97 24 117/86 99 Room Air 02/19/17 17:16 18 99 Room Air 02/19/17 17:16 99 Room Air 02/19/17 16:02 98.0 110 16 123/77 100 Room Air -: 02/20/17 0513 02/20/17 0513 Microbiology 02/19/17 Aerobic Blood Culture - Preliminary, Resulted NO GROWTH IN 1 DAY 02/19/17 Anaerobic Blood Culture - Preliminary, Resulted NO GROWTH IN 1 DAY 02/19/17 Aerobic Blood Culture - Preliminary, Resulted NO GROWTH IN 1 DAY 02/19/17 Anaerobic Blood Culture - Preliminary, Resulted NO GROWTH IN 1 DAY Physical Exam General Appearance: Well Developed, Well Nourished Throat Throat Exam: Oral Mucosa [place] & Moist Neck Neck Exam: Neck Supple Pulmonary Resp Exam: Clear Bilaterally, Breath Sounds Equal Cardiology CV Exam: Tachycardia Gastrointestinal/Abdomen GI Exam: Soft, Non-Tender, Bowel Sounds Present Integumentary Skin Exam: Clear Extremeties Extremities Exam: No Edema Neurologic Neuro Exam: Alert, Awake, Oriented Assessment/Plan Problem List: (1) Acute renal failure Plan: ARF likely severe dehydration/ATN resolving good UOP US kidney unremarkable since [place] level is 1.5 I will hold hemodialysis Cr declined 4.89 DC [place] catheter (2) [place] toxicity Plan: Admission lithium level 2.9 during dialysis 1 post dialysis 1.5 this am (3) Hyponatremia Plan: Likely due to renal failure and lithium toxicity (4) Gait disturbance Plan: [place] toxicity (5) Hypercalcemia Plan: likely dehydration resolved Problem Qualifiers (1) Acute renal failure: Qualified Code: N17.9 - Acute renal failure, unspecified acute renal failure type (2) [place] toxicity: Qualified Code: T56.894A - [place] toxicity, undetermined intent, initial encounter Liyah Marin MD Feb 20, 2017 11:36
--- NOTE | 2017-02-20 15:30 | HHI.CCPN ---
Subjective Remarks/Hospital Course 02/19: 51-year-old male came to the emergency room with history of progressive incoordination and disequilibrium. Increase forgetfulness. All the symptoms have suddenly escalated over the past 3 days. Patient has been noticing difficulty ambulating as well as doing simple activities like drinking water since he is spilling it since he is so shaky. In the emergency department he was found to be tachycardic, and shivering. His laboratory workup revealed acute kidney failure with creatinine of 9 and elevated lithium level. He is admitted to critical care unit, dialysis catheter was placed emergently and patient is undergoing urgent hemodialysis. 02/20: Sitting up in bed. Was dialyzed last night for lithium toxicity and acute renal failure. [place] level down to 1.5. Making urine. Objective Vital Signs Date Time Temp Pulse Resp B/P Pulse Ox O2 Delivery O2 Flow Rate FiO2 02/20/17 14:00 110 02/20/17 12:00 98.1 18 142/92 98 02/20/17 08:40 21 02/20/17 07:00 Room Air Intake and Output 02/19/17 02/19/17 02/20/17 08:00 16:00 00:00 Intake Total 172 ml Output Total 1750 ml Balance -1578 ml Result Diagram: 02/20/17 0513 02/20/17 0513 Imaging Last 24 hours Impressions Chest X-Ray 02/19/172030 Signed Impressions: Service Date/Time: February 20:36 - CONCLUSION: Right IJ line tip is in the superior vena cava. No evidence of acute cardiopulmonary disease. No pneumothorax or other acute complication demonstrated. Unruly Valera MD Renal Ultrasound 02/19/17 0000 Signed Impressions: Service Date/Time: February 19:13 - CONCLUSION: Renal ultrasound within normal limits. Unruly Valera MD Head CT 02/19/17 0000 Signed Impressions: Service Date/Time: February 19:05 - CONCLUSION: Negative noncontrast head CT. Unruly Valera MD Objective Remarks GENERAL: Well-nourished, well-developed patient. SKIN: Warm and dry. HEAD: Normocephalic. EYES: No scleral icterus. No injection or drainage. NECK: Supple, trachea midline. No JVD or lymphadenopathy. CARDIOVASCULAR: Regular rate and rhythm without murmurs, gallops, or rubs. RESPIRATORY: Breath sounds equal bilaterally. No accessory muscle use. GASTROINTESTINAL: Abdomen soft, non-tender, nondistended. MUSCULOSKELETAL: No cyanosis, or edema. BACK: Nontender without obvious deformity. No CVA tenderness. EXTREMITIES: No clubbing cyanosis or edema Neuro: Awake alert oriented 3, nonfocal grossly. A/P Assessment and Plan Acute renal failure - Ultrasound-negative - Likely dehydration - Nephrology consult appreciated - Hemodialysis per above [place] toxicity - s/p emergent HD. Follow up lithium level down to 1.5. We'll consult psychiatry as patient concerned regarding his bipolar disorder. He sees Dr. Lopez from [facility] as outpatient for his bipolar disorder. Hypertension - Hold diuretics due to acute kidney injury - Currently normotensive HIV - Resume Nevirapine on discharge DVT GI prophylaxis - Subcutaneous heparin teds SCDs - Early aggressive mobilization - Pepcid We'll consult and transfer to hospitalist service for further medical management. Transfer out of ICU in [place] MD Feb 20, 2017 15:30
--- NOTE | 2017-02-20 22:40 | EKG ---
Date Performed: 02/19/2017 Time Performed: 18:38:44 PTAGE: 51 years EKG: Sinus rhythm WITH FIRST DEGREE AV BLOCK MODERATE INTRAVENTRICULAR CONDUCTION DELAY ABNORMAL ECG INTERPRETATION BA SED ON A DEFAULT AGE OF 40 YEARS PREVIOUS TRACING : 05/02/2009 13.06 DOCTOR: Artemio Young Interpretating Date/Time 02/20/2017 22:39:32
[2017-02-21] VITALS (13 sets, daily range): BP systolic 131–166; BP diastolic 83–103; PULSE 87–119; RESP 17–28; TEMP 96.6–98.4; O2SAT 94–100
[2017-02-21] MEDS: CHLORHEXIDINE GLUCONATE 2 % 1 PACK (2 CLOTHS) TOP SCH (04:00)
[2017-02-21 05:23] LABS: ALKALINE PHOSPHATASE 83 U/L (45-117); ALT (GPT) 25 U/L (12-78); ANION GAP 9 MEQ/L (5-15); AST (GOT) 17 U/L (15-37); BICARBONATE 20.9 MEQ/L (21.0-32.0); BLOOD UREA NITROGEN 43 MG/DL (7-18); CHLORIDE 107 MEQ/L (98-107); GLOMERULAR FILTRATION RATE 18 ML/MIN (>89); POTASSIUM 4.2 MEQ/L (3.5-5.1); SODIUM (NA) 137 MEQ/L (136-145); TOTAL BILIRUBIN ADULT 0.5 MG/DL (0.2-1.0)
[2017-02-21 05:29] LABS: AUTOMATED NEUTROPHIL # 4.1 TH/MM3 (1.8-7.7); BASOPHIL % 0.2 % (0.0-2.0); EOSINOPHIL # 0.1 TH/MM3 (0-0.4); EOSINOPHIL % 1.4 % (0.0-4.0); HEMATOCRIT 37.5 % (39.0-51.0); HEMO FLAGS DIFF FINAL; LYMPH % 22.6 % (9.0-44.0); LYMPHOCYTE # 1.4 TH/MM3 (1.0-4.8); MEAN CELL VOLUME 104.1 FL (80.0-100.0); MEAN CORPUSCULAR HEMOGLOBIN 34.4 PG (27.0-34.0); MEAN CORPUSCULAR HGB CONC 33.1 % (32.0-36.0); MONO % 9.9 % (0.0-8.0); NEUT % 65.9 % (16.0-70.0); PLATELET COUNT 231 TH/MM3 (150-450); RED BLOOD COUNT 3.61 MIL/MM3 (4.50-5.90); RED CELL DISTRIBUTION WIDTH 12.7 % (11.6-17.2); WHITE BLOOD COUNT 6.2 TH/MM3 (4.0-11.0)
[2017-02-21] MEDS: SODIUM CHLOR 0.9% 1000 ML INJ 1,000 ML IV SCH ×2 (06:47→20:08)
[2017-02-21] MEDS: DOCUSATE SODIUM 50 MG/SENNA 8.6 MG TAB PO SCH ×2 (09:00→20:05)
[2017-02-21] MEDS: HEPARIN SODIUM - SQ 10,000 UNITS/ML VIAL SQ SCH ×2 (09:17→20:06)
[2017-02-21] MEDS: FAMOTIDINE 20 MG/2 ML VIAL IV PUSH SCH ×2 (09:18→09:40)
--- NOTE | 2017-02-21 09:36 | HHI.NPPN ---
Subjective History of Present Illness 51 year old male with [place] toxicity ARF Additional Remarks He was dialyzed once. Renal function is improving. He is non oliguric. Review of Systems General Constitutional: Fatigue Objective Data Data 02/20/17 02/21/17 19:00 07:00 Intake Total 304 ml 1499 ml Output Total 1100 ml 450 ml Balance -796 ml 1049 ml Intake Oral 300 ml 300 ml IV Total 4 ml 1199 ml Output Urine Total 1100 ml 450 ml # Voids 2 # Bowel Movements 0 1 Vital Signs Date Time Temp Pulse Resp B/P Pulse Ox O2 Delivery O2 Flow Rate FiO2 02/21/17 08:09 95 02/21/17 08:00 95 02/21/17 08:00 97.8 95 21 166/97 94 02/21/17 07:15 97 Room Air 02/21/17 06:00 87 02/21/17 04:00 98.4 92 23 131/83 95 02/21/17 04:00 92 02/21/17 02:00 90 02/21/17 00:00 98.2 102 22 136/83 98 02/21/17 00:00 102 02/20/17 22:00 106 02/20/17 20:57 96 02/20/17 20:00 115 02/20/17 20:00 97.8 115 32 159/75 94 02/20/17 19:00 96 Room Air 02/20/17 18:00 110 02/20/17 16:00 98.1 108 20 143/89 99 02/20/17 16:00 90 02/20/17 14:00 110 02/20/17 12:00 98.1 103 18 142/92 98 02/20/17 12:00 103 02/20/17 10:00 93 -: 02/21/17 0420 02/21/17 0420 Physical Exam General Appearance: Well Developed, Well Nourished Throat Throat Exam: Oral Mucosa [place] & Moist Neck Neck Exam: Neck Supple Pulmonary Resp Exam: Clear Bilaterally, Breath Sounds Equal Cardiology CV Exam: Tachycardia Gastrointestinal/Abdomen GI Exam: Soft, Non-Tender, Bowel Sounds Present Integumentary Skin Exam: Clear Extremeties Extremities Exam: No Edema Neurologic Neuro Exam: Alert, Awake, Oriented Assessment/Plan Problem List: (1) Acute renal failure Plan: US of kidney unremarkable. ELEAZAR is resolving. No need for dialysis. [place] level had decreased. (2) [place] toxicity Plan: Admission lithium level 2.9 Improved. No level available from today. (3) Hyponatremia Plan: resolved. (4) Hypercalcemia Plan: resolved. Problem Qualifiers (1) Acute renal failure: Qualified Code: N17.9 - Acute renal failure, unspecified acute renal failure type (2) [place] toxicity: Qualified Code: T56.894A - [place] toxicity, undetermined intent, initial encounter Juan J Kapoor MD Feb 21, 2017 09:36
[2017-02-21] MEDS: SODIUM CHLORIDE 0.9% FLUSH 10 ML FLUSH SCH ×2 (09:42→20:07)
--- NOTE | 2017-02-21 11:06 | HHI.PR ---
Subjective Remarks pt on edge bed. eager for transfer out of icu says his mother will bring accurate home med list. Objective Vitals nad heart reg lung cta abd /snt ext no edema cvl noted. Vital Signs Date Time Temp Pulse Resp B/P Pulse Ox O2 Delivery O2 Flow Rate FiO2 02/21/17 08:09 95 02/21/17 08:00 95 02/21/17 08:00 97.8 95 21 166/97 94 02/21/17 07:15 97 Room Air 02/21/17 06:00 87 02/21/17 04:00 98.4 92 23 131/83 95 02/21/17 04:00 92 02/21/17 02:00 90 02/21/17 00:00 98.2 102 22 136/83 98 02/21/17 00:00 102 02/20/17 22:00 106 02/20/17 20:57 96 02/20/17 20:00 115 02/20/17 20:00 97.8 115 32 159/75 94 02/20/17 19:00 96 Room Air 02/20/17 18:00 110 02/20/17 16:00 98.1 108 20 143/89 99 02/20/17 16:00 90 02/20/17 14:00 110 02/20/17 12:00 98.1 103 18 142/92 98 02/20/17 12:00 103 02/20/17 02/20/17 02/21/17 15:00 23:00 07:00 Intake Total 304 ml 805 ml 694 ml Output Total 1100 ml 450 ml Balance -796 ml 805 ml 244 ml Intake Oral 300 ml 240 ml 60 ml IV Total 4 ml 565 ml 634 ml Output Urine Total 1100 ml 450 ml # Voids 2 # Bowel Movements 0 1 Result Diagram: 02/21/17 0420 02/21/17 0420 A/P Problem List: (1) ELEAZAR (acute kidney injury) Status: Acute Plan: Pt presents with eleazar, lithium toxicity, hypercalcemia/hyponatremia He has HIV and on medications Has been receiving HD and now urinating with improving cr transfer out of icu renal following. no need for HD now...monitor. psychiatry consulted for advice on psychiatric meds. he was on lithium and his mother to bring in accurate list today. will resume his HIV meds once confirmed by home list (2) HIV (human immunodeficiency virus infection) Status: Chronic Plan: see above (3) Hypercalcemia Status: Acute Plan: see above (4) [place] toxicity Status: Acute Plan: see above (5) Hyponatremia Status: Acute Plan: see above (6) Depressed Status: Chronic Plan: see above Problem Qualifiers (1) [place] toxicity: Qualified Code: T56.894A - [place] toxicity, undetermined intent, initial encounter Alek Rodas MD Feb 21, 2017 11:06
[2017-02-21] MEDS ORDERED: VITACAP7 PO (12:45)
[2017-02-21] MEDS ORDERED: QUET-88 PO (12:45)
[2017-02-21] MEDS ORDERED: ATOR10TA15 PO (12:45)
[2017-02-21] MEDS ORDERED: METO25TA3 PO (12:45)
[2017-02-21] MEDS ORDERED: ACYC800T PO (12:45)
[2017-02-21] MEDS ORDERED: INTE200T PO (12:45)
[2017-02-21] MEDS ORDERED: ASCO500W (12:45)
[2017-02-21] MEDS ORDERED: LAMI1TAB8 PO (12:45)
[2017-02-21] MEDS ORDERED: THERTAB53 (12:45)
[2017-02-21] MEDS ORDERED: ASPI81TA11 PO (12:45)
[2017-02-21] MEDS ORDERED: DOLU1TAB PO (12:45)
[2017-02-21] MEDS ORDERED: LISI-515 PO (12:45)
[2017-02-21] MEDS ORDERED: LITH300C2 PO (12:45)
[2017-02-21] MEDS ORDERED: cloNIDine HCL 0.1 MG TAB PO PRN (13:30)
--- NOTE | 2017-02-21 13:40 | PD.CONS ---
Provisional Diagnosis Admission Date Feb 19, 2017 at 18:45 [place]. Bipolar disorder by history History of Present Illness Service Psychiatry Consult Requested By [facility] Primary Care Physician Taz Gray MD HPI This is a 51-year-old male with a history of bipolar disorder, treated by Dr. Taz Lopez. Apparently the patient was admitted with lithium toxicity and now is experiencing significant renal problems. This physician is being consult did to provide medication adjustment instead of continuing with lithium. The patient also takes Seroquel and several HIV medications. This physician spoke with the patient and his mother at the bedside. He is not currently suffering from significant symptoms of a mood disorder. He does have significant insomnia and states this makes him feel tired and dysphoric throughout the day. This physician recommended Klonopin, which works for sleep, anxiety and as an antimanic drug. The patient would like to continue on Seroquel and this physician is in agreement, as long as the case management specialist does not feel it will interfere with the current kidney issues. Finally, the patient has not been tried on Depakote as a mood stabilizer. This too is being recommended if the case management specialist does not have a problem with its use at this time. Review of Systems Except as stated in HPI: all other systems reviewed are Neg Past Family Social History Coded Allergies: No Known Allergies (Verified , 02/19/17) Reported Medications Dolutegravir (Tivicay)50 Mg Tab50 Mg PO DAILY #30 TAB Ref 0 02/21/17 Quetiapine Fumarate (Quetiapine Fumarate ER)200 Mg Tab Po Hs 02/21/17 Lamivudine 300 Mg [id number] Mg PO DAILY #30 TAB Ref 0 02/21/17 Atorvastatin 10 Mg Tab10 Mg PO HS PRN (Mon, Wed, Fri) #30 TAB Ref 0 02/21/17 Acyclovir 800 Mg [id number] Mg PO DAILY Ref 0 02/21/17 Ascorbic Acid/Ascorbate Sodium (Vitamin C 500 mg Wafer)500 Mg Wafer Tab DAILY 02/21/17 Multiple Vitamin (Thera-Tabs)1 Tab Tab Tab DAILY 02/21/17 Metoprolol Tartrate 25 Mg Tab25 Mg PO BID #60 TAB Ref 0 02/21/17 [place] Carbonate 300 Mg [id number] Mg PO BID Ref 0 02/21/17 Lisinopril 20 Mg Tab20 Mg PO DAILY #30 TAB Ref 0 02/21/17 Etravirine (Intelence)200 Mg [id number] Mg PO BID Ref 0 02/21/17 B-Complex Vitamins (B Complex)1 Cap1 Cap PO DAILY #30 CAP Ref 0 02/21/[address] (Aspirin EC)81 Mg Tabdr81 Mg PO Mon, Wed, Fri Ref 0 02/21/17 Nevirapine (Viramune)200 Mg [id number] Mg PO BID #60 TAB Ref 0 02/19/17 Bupropion HCl ER 12 HR 100 Mg Upy011 Mg PO DAILY May increase to twice a day if needed 02/19/17 Hydrochlorothiazide 25 Mg Tab12.5 Mg PO DAILY #30 TAB Ref 0 02/19/17 [trilipix] No Conflict [id number] Mg DAILY 05/03/09 [truvada] No Conflict Check Po Daily 05/03/09 Current Medications Medications (Trade) Dose Ordered Sig/Mitra Route Start Time Stop Time Status Last Admin (NS 1000 ml Inj) 1,000 ml @ 0 mls/hr Q0M PRN IV 02/19/17 18:48 Heparin Sodium (Porcine) 8000 units 8,000 units UNSCH PRN IVF 02/19/17 19:00 Sodium Chloride 1,000 ml @ 200 mls/hr Q5H PRN IV 02/19/17 18:48 (NS 1000 ml Inj) 1,000 ml @ 0 mls/hr Q0M PRN IV 02/19/17 18:48 (Mannitol Inj) 12.5 gm UNSCH PRN IV 02/19/17 19:00 (Albumin 25% Inj) 25 gm UNSCH PRN IV 02/19/17 19:00 (NS Flush) 5 ml UNSCH PRN IV FLUSH 02/19/17 19:00 (Heparin Inj) UNSCH PRN .XX 02/19/17 19:00 (Gentamicin (Dialysis) Inj) 20 mg UNSCH PRN IV 02/19/17 19:00 02/19/17 23:22 (Zofran Inj) 4 mg UNSCH PRN IV 02/19/17 19:00 (Tylenol) 650 mg UNSCH PRN PO 02/19/17 19:00 (Benadryl) 25 mg UNSCH PRN PO 02/19/17 19:00 (Nitrostat Sl) 0.4 mg UNSCH PRN SL 02/19/17 19:00 (Catapres) 0.1 mg UNSCH PRN PO 02/19/17 19:00 Gelatin 1 foam 1 foam UNSCH PRN TOP 02/19/17 19:00 (NS 1000 ml Inj) 1,000 ml @ 84 mls/hr [id number] IV 02/19/17 19:02 02/21/17 06:47 (NS Flush) 2 ml UNSCH PRN .XX 02/19/17 19:15 (NS Flush) 2 ml BID .XX 02/19/17 21:00 02/21/17 09:42 (Tylenol) 650 mg Q6H PRN PO 02/19/17 19:15 (Morphine Inj) 2 mg Q2H PRN IV 02/19/17 19:15 02/21/17 12:09 (Pepcid Inj) 10 mg Q12HR IV PUSH 02/19/17 21:00 02/21/17 09:40 (Zofran Inj) 4 mg Q6H PRN IV 02/19/17 19:15 (Reglan Inj) 10 mg Q6H PRN IV 02/19/17 19:15 (Compazine Supp) 25 mg Q12H PRN RECTAL 02/19/17 19:15 (Ambien) 5 mg HS PRN PO 02/19/17 19:15 02/20/17 22:11 (Heparin Inj) 5,000 units Q12HR SQ 02/19/17 21:00 02/21/17 09:17 Miscellaneous Information 1 [id number] XX 02/19/17 19:15 (Chlorhexidine 2% Cloth) 3 pack Taper DAILY@04 TOP 02/20/17 04:00 02/16/18 03:59 02/21/17 04:00 (Chlorhexidine 2% Cloth) 3 pack UNSCH PRN TOP 02/19/17 19:15 (Taisha-Colace) 1 tab BID PO 02/19/17 21:00 02/20/17 21:41 (Milk Of Magnesia Liq) 30 ml Q12H PRN PO 02/19/17 19:15 (Senokot) 17.2 mg Q12H PRN PO 02/19/17 19:15 (Dulcolax Supp) 10 mg DAILY PRN RECTAL 02/19/17 19:15 (Lactulose Liq) 30 ml DAILY PRN PO 02/19/17 19:15 (Wellbutrin Sr 12 Hr) 100 mg DAILY PO 02/22/17 09:00 (Epivir) 300 mg DAILY PO 02/22/17 09:00 (Lopressor) 25 mg BID PO 02/21/17 21:00 (Viramune) 200 mg BID PO 02/21/17 21:00 (Intelence) 200 mg BID PO 02/21/17 21:00 (Catapres) 0.1 mg Q4H PRN PO 02/21/17 13:30 (SEROquel) 200 mg HS PO 02/21/17 21:00 Family History Positive for mood disorder Social History Denies alcohol or drug abuse. HIV positive. Tries to work gainfully but continues to have issues with bipolar and HIV problems. Has a supportive mother at his bedside. Patient's Strengths (min. 2) Verbal and has access to healthcare. Physical Exam Vital Signs Vital Signs Date Time Temp Pulse Resp B/P Pulse Ox O2 Delivery O2 Flow Rate FiO2 02/21/17 08:09 95 02/21/17 08:00 95 02/21/17 08:00 97.8 21 166/97 02/21/17 07:15 Room Air 02/20/17 08:40 21 I/O 02/20/17 02/20/17 02/21/17 08:00 16:00 00:00 Intake Total 855 ml 304 ml 805 ml Output Total 500 ml 1100 ml Balance 355 ml -796 ml 805 ml Mental Status Examination Speech: Unremarkable Orientation: x3 Memory: Unremarkable Thought Process: Organized, Goal Directed Thought Content: Unremarkable Hallucination Type: None Attention and Concentration: Good Suicidal Ideation: No Previous Suicide Attempts: No Homicidal Ideation: No Previous Homicide Attempts: No Insight: Fair Judgment: WNL Affect: Good Mood: Appropriate Motor Activity: Normal gait Assessment & Plan Problem List: (1) History of depressed bipolar disorder ICD Code: F31.70 Assessment & Plan Estimated LOS: days this is a 51-year-old male with history of bipolar disorder and HIV positive. Patient is on multiple medications and recently experienced significant lithium toxicity. He continues to show evidence of tremor in his hands and mental confusion, which are signs of lithium toxicity. He is also experiencing renal insufficiency or renal failure, probably as a result of lithium toxicity. This physician is asked for treatment recommendations for the patient's bipolar disorder. However due to the renal issues and lithium toxicity, these changes would need to be approved by the case management specialist before they are started. Patient should be started on Klonopin at night for sleep and antimanic properties. Patient should be continued on Seroquel 4 mood stabilization properties.. Patient can be treated with Depakote ER 500 mg once per day to begin with, if cleared by case management specialist. Patient has not been on Depakote previously. He has been on Lamictal, which did not work for him. This physician believes strongly the patient should not go back to lithium. Alek Harris MD Feb 21, 2017 13:40
[2017-02-21] MEDS: QUEtiapine FUMARATE 200 MG TAB PO SCH (20:05)
[2017-02-21] MEDS: METOPROLOL TARTRATE 25 MG TAB PO SCH (20:05)
[2017-02-21] MEDS: ETRAVIRINE 100 MG TAB PO SCH (20:05)
[2017-02-21] MEDS: NEVIRAPINE 200 MG TAB PO SCH (20:05)
[2017-02-21] MEDS: clonazePAM 1 MG TAB PO SCH (20:06)
[2017-02-22] VITALS (7 sets, daily range): BP systolic 130–156; BP diastolic 84–99; PULSE 84–97; RESP 16–18; TEMP 95.7–97.9; O2SAT 98–100
[2017-02-22] MEDS: CHLORHEXIDINE GLUCONATE 2 % 1 PACK (2 CLOTHS) TOP SCH (04:00)
[2017-02-22] MEDS: SODIUM CHLOR 0.9% 1000 ML INJ 1,000 ML IV SCH (06:37)
[2017-02-22] MEDS: ETRAVIRINE 100 MG TAB PO SCH ×2 (08:18→21:02)
[2017-02-22] MEDS: DOCUSATE SODIUM 50 MG/SENNA 8.6 MG TAB PO SCH ×2 (08:18→21:00)
[2017-02-22] MEDS: buPROPion HCL 100 MG SUSTAINED RELEASE TAB PO SCH (08:18)
[2017-02-22] MEDS: DOLUTEGRAVIR SODIUM 50 MG TAB PO SCH (08:18)
[2017-02-22] MEDS: NEVIRAPINE 200 MG TAB PO SCH ×2 (08:18→21:01)
[2017-02-22] MEDS: FAMOTIDINE 20 MG/2 ML VIAL IV PUSH SCH ×2 (08:19→21:02)
[2017-02-22] MEDS: SODIUM CHLORIDE 0.9% FLUSH 10 ML FLUSH SCH ×2 (08:19→21:02)
[2017-02-22] MEDS: HEPARIN SODIUM - SQ 10,000 UNITS/ML VIAL SQ SCH ×2 (08:19→21:05)
[2017-02-22] MEDS: METOPROLOL TARTRATE 25 MG TAB PO SCH ×2 (08:23→21:01)
--- NOTE | 2017-02-22 09:49 | HHI.NPPN ---
Subjective History of Present Illness 51 year old male with [place] toxicity ARF Additional Remarks He was dialyzed once. Renal function had been improving. He is non oliguric. Seen by psychiatry. Patient is disoriented to place and time. Mother is at the bedside. Review of Systems General Constitutional: Fatigue Objective Data Data 02/21/17 02/22/17 19:00 07:00 Intake Total 1074 ml 240 ml Output Total 720 ml 450 ml Balance 354 ml -210 ml Intake Oral 420 ml 240 ml IV Total 654 ml Output Urine Total 720 ml 450 ml # Voids 2 # Bowel Movements 0 Vital Signs Date Time Temp Pulse Resp B/P Pulse Ox O2 Delivery O2 Flow Rate FiO2 02/22/17 08:00 97.9 89 16 140/88 98 Automatic Cuff 02/22/17 08:00 97.9 89 16 140/88 98 Automatic Cuff 02/22/17 04:27 97.2 90 17 130/84 98 02/22/17 00:18 97.6 84 17 130/99 100 02/21/17 22:00 150/90 02/21/17 20:08 97.6 119 17 154/103 100 02/21/17 17:38 96.6 103 18 157/97 100 02/21/17 16:00 98.4 105 18 151/83 97 02/21/17 16:00 105 02/21/17 14:00 102 02/21/17 12:00 101 02/21/17 12:00 98.2 101 28 144/97 95 02/21/17 10:00 104 -: 02/21/17 0420 02/21/17 0420 Physical Exam General Appearance: Well Developed, Well Nourished Throat Throat Exam: Oral Mucosa [place] & Moist Neck Neck Exam: Neck Supple Pulmonary Resp Exam: Clear Bilaterally, Breath Sounds Equal Cardiology CV Exam: Tachycardia Gastrointestinal/Abdomen GI Exam: Soft, Non-Tender, Bowel Sounds Present Integumentary Skin Exam: Clear Extremeties Extremities Exam: No Edema Neurologic Neuro Exam: Alert, Awake, Oriented Assessment/Plan Problem List: (1) Acute renal failure Plan: US of kidney unremarkable. ELEAZAR had been resolving. Monitor labs. No need for dialysis. [place] level had decreased. (2) [place] toxicity Plan: Admission lithium level 2.9 Improved. No level available from today. (3) Hyponatremia Plan: resolved. (4) Hypercalcemia Plan: resolved. Problem Qualifiers (1) Acute renal failure: Qualified Code: N17.9 - Acute renal failure, unspecified acute renal failure type (2) [place] toxicity: Qualified Code: T56.894A - [place] toxicity, undetermined intent, initial encounter Juan J Kapoor MD Feb 22, 2017 09:49
[2017-02-22 09:52] LABS: BICARBONATE 20.1 MEQ/L (21.0-32.0)
--- NOTE | 2017-02-22 13:52 | HHI.PR ---
Subjective Remarks pt with some disequilibrium/shaking/balance issues Objective Vitals heart reg lung cta abd s/nt ext no edema vascath. Vital Signs Date Time Temp Pulse Resp B/P Pulse Ox O2 Delivery O2 Flow Rate FiO2 02/22/17 12:00 96.5 86 16 135/93 100 02/22/17 08:35 99 21 02/22/17 08:00 97.9 89 16 140/88 98 Automatic Cuff 02/22/17 08:00 97.9 89 16 140/88 98 Automatic Cuff 02/22/17 04:27 97.2 90 17 130/84 98 02/22/17 00:18 97.6 84 17 130/99 100 02/21/17 22:00 150/90 02/21/17 20:08 97.6 119 17 154/103 100 02/21/17 17:38 96.6 103 18 157/97 100 02/21/17 16:00 98.4 105 18 151/83 97 02/21/17 16:00 105 02/21/17 14:00 102 02/21/17 02/21/17 02/22/17 15:00 23:00 07:00 Intake Total 1074 ml 240 ml Output Total 720 ml 450 ml Balance 354 ml -210 ml Intake Oral 420 ml 240 ml IV Total 654 ml Output Urine Total 720 ml 450 ml # Voids 2 # Bowel Movements 0 Result Diagram: 02/21/17 0420 02/22/17 0813 A/P Problem List: (1) ELEAZAR (acute kidney injury) Status: Acute Plan: Pt presents with [place], lithium toxicity, hypercalcemia/hyponatremia He also had some cognitive decline/tremors/disequilibrium/ataxia He has HIV and on medications Has been receiving HD and now urinating with improving cr moved out of ICU consult PT to reassess gait abnormality believed to be from lithium toxicity. Hopefully this will resolved with improved renal function and HD. monitor for intermediate project manager neurological sequelae of lithium toxicity. Pt prefers [facility] instead of [facility] renal following. no need for HD now...monitor. remove vascath when ok with renal psychiatry consulted for advice on psychiatric meds and alternative med to lithium His mother brought the list of mail order meds he is taking.. will resume his HIV meds (2) HIV (human immunodeficiency virus infection) Status: Chronic Plan: see above (3) Hypercalcemia Status: Acute Plan: see above (4) [place] toxicity Status: Acute Plan: see above (5) Hyponatremia Status: Acute Plan: see above (6) Depressed Status: Chronic Plan: see above Problem Qualifiers (1) [place] toxicity: Qualified Code: T56.894A - [place] toxicity, undetermined intent, initial encounter Alek Rodas MD Feb 22, 2017 13:52
[2017-02-22] MEDS: QUEtiapine FUMARATE 200 MG TAB PO SCH (21:01)
[2017-02-22] MEDS: clonazePAM 1 MG TAB PO SCH (21:01)
[2017-02-23] VITALS (7 sets, daily range): BP systolic 105–134; BP diastolic 65–99; PULSE 77–101; RESP 16–20; TEMP 95.8–98.4; O2SAT 97–100
[2017-02-23] MEDS: CHLORHEXIDINE GLUCONATE 2 % 1 PACK (2 CLOTHS) TOP SCH ×2 (03:05→20:54)
[2017-02-23] MEDS: SODIUM CHLOR 0.9% 1000 ML INJ 1,000 ML IV SCH ×2 (04:18→18:14)
[2017-02-23] MEDS: FAMOTIDINE 20 MG/2 ML VIAL IV PUSH SCH ×2 (08:07→20:53)
[2017-02-23] MEDS: HEPARIN SODIUM - SQ 10,000 UNITS/ML VIAL SQ SCH ×2 (08:07→20:53)
[2017-02-23] MEDS: ETRAVIRINE 100 MG TAB PO SCH ×2 (08:07→21:14)
[2017-02-23] MEDS: DOLUTEGRAVIR SODIUM 50 MG TAB PO SCH (08:07)
[2017-02-23] MEDS: METOPROLOL TARTRATE 25 MG TAB PO SCH ×2 (08:07→20:52)
[2017-02-23] MEDS: NEVIRAPINE 200 MG TAB PO SCH ×2 (08:07→21:14)
[2017-02-23] MEDS: SODIUM CHLORIDE 0.9% FLUSH 10 ML FLUSH SCH ×2 (08:08→20:55)
[2017-02-23] MEDS: DOCUSATE SODIUM 50 MG/SENNA 8.6 MG TAB PO SCH ×2 (08:08→20:53)
[2017-02-23] MEDS: buPROPion HCL 100 MG SUSTAINED RELEASE TAB PO SCH (08:08)
--- NOTE | 2017-02-23 13:28 | HHI.NPPN ---
Subjective History of Present Illness 51 year old male with [place] toxicity ARF Additional Remarks He was dialyzed once. Renal function had been improving. He is non oliguric. Seen by psychiatry. Review of Systems General Constitutional: Fatigue Objective Data Data 02/22/17 02/23/17 19:00 07:00 Intake Total 1968 ml 240 ml Output Total 525 ml Balance 1443 ml 240 ml Intake Oral 960 ml 240 ml IV Total 1008 ml Output Urine Total 525 ml # Voids 2 2 # Bowel Movements 0 Vital Signs Date Time Temp Pulse Resp B/P Pulse Ox O2 Delivery O2 Flow Rate FiO2 02/23/17 12:16 96.3 84 20 126/83 97 02/23/17 10:02 99 21 02/23/17 08:14 97.3 88 20 106/65 97 02/23/17 04:00 97.8 83 16 105/66 99 02/23/17 00:00 95.8 77 16 134/99 100 02/22/17 20:00 95.7 97 18 156/97 99 02/22/17 16:00 96.3 90 16 134/92 99 -: 02/21/17 0420 02/22/17 0813 Physical Exam General Appearance: Well Developed, Well Nourished Throat Throat Exam: Oral Mucosa [place] & Moist Neck Neck Exam: Neck Supple Pulmonary Resp Exam: Clear Bilaterally, Breath Sounds Equal Cardiology CV Exam: Tachycardia Gastrointestinal/Abdomen GI Exam: Soft, Non-Tender, Bowel Sounds Present Integumentary Skin Exam: Clear Extremeties Extremities Exam: No Edema Neurologic Neuro Exam: Alert, Awake, Oriented Assessment/Plan Problem List: (1) Acute renal failure Plan: US of kidney unremarkable. ELEAZAR had been resolving. Monitor labs. No need for dialysis. [place] level had decreased. DC vascath diet low salt heart healthy (2) [place] toxicity Plan: Admission lithium level 2.9 Improved. (3) Hyponatremia Plan: resolved. (4) Hypercalcemia Plan: resolved. Problem Qualifiers (1) Acute renal failure: Qualified Code: N17.9 - Acute renal failure, unspecified acute renal failure type (2) [place] toxicity: Qualified Code: T56.894A - [place] toxicity, undetermined intent, initial encounter Liyah Marin MD Feb 23, 2017 13:28
--- NOTE | 2017-02-23 13:45 | HHI.PR ---
Subjective Remarks Pts mother feels that he is much less shaky but still issues with short term memory loss Pt not eating well. Objective Vitals Vital Signs Date Time Temp Pulse Resp B/P Pulse Ox O2 Delivery O2 Flow Rate FiO2 02/23/17 12:16 96.3 84 20 126/83 97 02/23/17 10:02 99 21 02/23/17 08:14 97.3 88 20 106/65 97 02/23/17 04:00 97.8 83 16 105/66 99 02/23/17 00:00 95.8 77 16 134/99 100 02/22/17 20:00 95.7 97 18 156/97 99 02/22/17 16:00 96.3 90 16 134/92 99 02/22/17 02/22/17 02/23/17 15:00 23:00 07:00 Intake Total 1968 ml 240 ml Output Total 525 ml Balance 1443 ml 240 ml Intake Oral 960 ml 240 ml IV Total 1008 ml Output Urine Total 525 ml # Voids 2 2 # Bowel Movements 0 Result Diagram: 02/21/17 0420 02/22/17 0813 Other Results Laboratory Tests Test 02/22/17 02/23/17 08:13 08:56 Sodium Level 136 MEQ/L Potassium Level 4.0 MEQ/L Chloride Level 108 MEQ/L Carbon Dioxide Level 20.1 MEQ/L Anion Gap 8 MEQ/L Blood Urea Nitrogen 34 MG/DL Creatinine 2.23 MG/DL Estimat Glomerular Filtration 31 ML/MIN Rate Random Glucose 81 MG/DL Calcium Level 9.5 MG/DL [place] Level 0.6 MEQ/L Imaging Last Impressions Chest X-Ray 02/19/172030 Signed Impressions: Service Date/Time: February 20:36 - CONCLUSION: Right IJ line tip is in the superior vena cava. No evidence of acute cardiopulmonary disease. No pneumothorax or other acute complication demonstrated. Unruly Valera MD Renal Ultrasound 02/19/17 0000 Signed Impressions: Service Date/Time: February 19:13 - CONCLUSION: Renal ultrasound within normal limits. Unruly Valera MD Head CT 02/19/17 0000 Signed Impressions: Service Date/Time: February 19:05 - CONCLUSION: Negative noncontrast head CT. Unruly Valera MD Objective Remarks General: NAD, confused Chest: CTA Cardiac: Regular Abd: +BS, soft ND/NT Ext: No edema A/P Problem List: (1) ELEAZAR (acute kidney injury) Status: Acute Plan: - Pt is a 51 y/o with HIV, bipolar disorder, and HTN - He presented with cognitive decline/tremors/disequilibrium/ataxia and was found to have ELEAZAR, lithium toxicity, hypercalcemia/hyponatremia. - He was admitted to ICU under the care of the Intensivists and was seen by Nephrology - Pt received HD on 02/20 for the lithium toxicity and now urinating with improving Cr and decreasing [place] level - Pt was moved out of ICU and care was transferred to the [facility] Hospitalist team on 02/21 - PT consult to reassess gait abnormality believed to be from lithium toxicity. Hopefully this will resolve with improved renal function. Monitor for superintendent terminal neurological sequelae of lithium toxicity. - Pt prefers [facility] instead of SNF - Nephrology following. Remove VasCath when ok with renal - Psychiatry consulted for advice on psychiatric meds and alternative med to lithium. They recommended the pt to be started on Klonopin 1mg HS, continue on Seroquel 200mg HS and start Depakote ER 500mg once per day to begin when/if cleared by heavy equipment diesel mechanic to do so. - Pts HIV medications were resumed. - BMP in AM - Supportive care (2) HIV (human immunodeficiency virus infection) Status: Chronic Plan: see above (3) Hypercalcemia Status: Acute Plan: see above (4) [place] toxicity Status: Acute Plan: see above (5) Hyponatremia Status: Acute Plan: see above (6) Depressed Status: Chronic Plan: see above Assessment and Plan Patient examined. Assessment and plan formulated with Maggie Hill PA-C. I agree with the above. Problem Qualifiers (1) [place] toxicity: Qualified Code: T56.894A - [place] toxicity, undetermined intent, initial encounter Maggie Hill Feb 23, 2017 13:45 Robby Castillo DO Feb 25, 2017 12:56
[2017-02-23] MEDS: clonazePAM 1 MG TAB PO SCH (20:52)
[2017-02-23] MEDS: QUEtiapine FUMARATE 200 MG TAB PO SCH (20:52)
[2017-02-24] VITALS (8 sets, daily range): BP systolic 101–119; BP diastolic 68–88; PULSE 70–86; RESP 16–20; TEMP 96.7–98; O2SAT 98–100
[2017-02-24] MEDS: SODIUM CHLOR 0.9% 1000 ML INJ 1,000 ML IV SCH ×2 (06:32→10:34)
[2017-02-24 07:51] LABS: BICARBONATE 19.1 MEQ/L (21.0-32.0)
[2017-02-24] MEDS: SODIUM CHLORIDE 0.9% FLUSH 10 ML FLUSH SCH ×2 (08:21→19:55)
[2017-02-24] MEDS: NEVIRAPINE 200 MG TAB PO SCH ×2 (08:23→19:55)
[2017-02-24] MEDS: DOLUTEGRAVIR SODIUM 50 MG TAB PO SCH (08:23)
[2017-02-24] MEDS: DOCUSATE SODIUM 50 MG/SENNA 8.6 MG TAB PO SCH ×2 (08:23→19:54)
[2017-02-24] MEDS: ETRAVIRINE 100 MG TAB PO SCH ×2 (08:23→19:55)
[2017-02-24] MEDS: buPROPion HCL 100 MG SUSTAINED RELEASE TAB PO SCH (08:24)
[2017-02-24] MEDS: METOPROLOL TARTRATE 25 MG TAB PO SCH ×2 (08:24→19:54)
[2017-02-24] MEDS: HEPARIN SODIUM - SQ 10,000 UNITS/ML VIAL SQ SCH ×2 (09:57→19:53)
[2017-02-24] MEDS: FAMOTIDINE 20 MG/2 ML VIAL IV PUSH SCH ×2 (09:58→19:53)
--- NOTE | 2017-02-24 11:48 | HHI.FF ---
Face to Face Verification Diagnosis: (1) [place] toxicity (2) Depressed (3) HIV (human immunodeficiency virus infection) (4) Gait disturbance Home Health Nursing Order: Medical education Signs/symptoms of disease process Medication education-adverse effect Nursing assessment with vital signs I have seen patient David Talbot on 02/24/17. My clinical findings support the need for the requested home health care services because: Ltd mobility - disease progression Med compliance is questionable Limited ability to care for self Need for psychosocial assistance I certify that my clinical findings support that this patient is homebound because: Unsafe to leave home unassisted Need for psychosocial assistance Unable to use public transportation Robby Castillo DO Feb 24, 2017 11:48
--- NOTE | 2017-02-24 11:58 | HHI.PR ---
Subjective Remarks No new complaints. Objective Vitals Vital Signs Date Time Temp Pulse Resp B/P Pulse Ox O2 Delivery O2 Flow Rate FiO2 02/24/17 08:30 99 21 02/24/17 08:20 97.2 76 18 108/73 99 02/24/17 05:16 97.5 76 20 119/69 100 02/24/17 00:14 96.7 86 20 115/88 99 02/23/17 20:10 98.4 101 20 131/95 100 02/23/17 16:16 97.6 80 20 121/84 97 02/23/17 12:16 96.3 84 20 126/83 97 02/23/17 02/23/17 02/24/17 15:00 23:00 07:00 Intake Total 360 ml Balance 360 ml Intake Oral 360 ml # Voids 3 2 # Bowel Movements 0 Result Diagram: 02/21/17 0420 02/24/17 0700 Imaging Last Impressions Chest X-Ray 02/19/172030 Signed Impressions: Service Date/Time: February 20:36 - CONCLUSION: Right IJ line tip is in the superior vena cava. No evidence of acute cardiopulmonary disease. No pneumothorax or other acute complication demonstrated. Unruly Valera MD Renal Ultrasound 02/19/17 0000 Signed Impressions: Service Date/Time: February 19:13 - CONCLUSION: Renal ultrasound within normal limits. Unruly Valera MD Head CT 02/19/17 0000 Signed Impressions: Service Date/Time: February 19:05 - CONCLUSION: Negative noncontrast head CT. Unruly Valera MD Objective Remarks General: NAD, confused Chest: CTA Cardiac: Regular Abd: +BS, soft ND/NT Ext: No edema A/P Problem List: (1) ELEAZAR (acute kidney injury) Status: Acute Plan: - Pt is a 51 y/o with HIV, bipolar disorder, and HTN - He presented with cognitive decline/tremors/disequilibrium/ataxia and was found to have ELEAZAR, lithium toxicity, hypercalcemia/hyponatremia. - He was admitted to ICU under the care of the Intensivists and was seen by Nephrology - Pt received HD on 02/20 for the lithium toxicity and now urinating with improving Cr and decreasing [place] level - Pt was moved out of ICU and care was transferred to the [facility] Hospitalist team on 02/21 - PT consult to reassess gait abnormality believed to be from lithium toxicity. Hopefully this will resolve with improved renal function. Monitor for manager intermediate neurological sequelae of lithium toxicity. - PT reassessed pt 02/24. Pt able to ambulate 400ft with only mild ataxia - anticipate d/c to home 02/25/17 with [facility] - Nephrology following. Remove VasCath when ok with renal - Psychiatry consulted for advice on psychiatric meds and alternative med to lithium. They recommended the pt to be started on Klonopin 1mg HS, continue on Seroquel 200mg HS and start Depakote ER 500mg once per day to begin when/if cleared by aws developer to do so. - Case d/w Nephrology (02/24/17). Dr. Marin agrees with starting on depakote. - Pts HIV medications were resumed. - obtain pt with AMS likely d/t HIV encephalopathy and lithium toxicity - consult Neurology, for opinion - obtain MRI brain - obtain TSH, free T4, b12, folate, rpr, ammonia level - anticipate discharge to home 02/25/17 (2) HIV (human immunodeficiency virus infection) Status: Chronic Plan: see above (3) Hypercalcemia Status: Acute Plan: see above (4) [place] toxicity Status: Acute Plan: see above (5) Hyponatremia Status: Acute Plan: see above (6) Depressed Status: Chronic Plan: see above Problem Qualifiers (1) [place] toxicity: Qualified Code: T56.894A - [place] toxicity, undetermined intent, initial encounter Robby Castillo DO Feb 24, 2017 11:58
--- NOTE | 2017-02-24 14:46 | RADRPT ---
EXAM DATE/TIME: 02/24/2017 14:02 [place] COMPARISON: CT BRAIN W/O CONTRAST, February 19, 2017, 19:05. INDICATIONS : Altered mental status. CONTRAST: 14 cc Omniscan (gadodiamide) IV MEDICAL HISTORY : HIV. Renal failure, acute. Hypertension. SURGICAL HISTORY : Tonsillectomy. Fusion, lumbar. ENCOUNTER: Initial ACUITY: 2 day PAIN SCORE: 0/10 LOCATION: Head TECHNIQUE: Multiplanar, multisequence MRI of the brain was performed both prior to and following the administrat ion of paramagnetic contrast. FINDINGS: CEREBRUM: The ventricles are normal for age. No evidence of midline shift, mass lesion, hemorrhage or acute in farction. No extraaxial fluid collections are seen. The pituitary gland and suprasellar cistern are normal in configuration. WHITE MATTER: No significant signal abnormalities are seen in the white matter. POSTERIOR FOSSA: The cerebellum and brainstem are intact. The 4th ventricle is midline. The cerebellopontine angle is unremarkable. The cerebellar tonsils are normal in position.DIFFUSION IMAGING: No focal areas of restricted diffusion are seen. No evidence of acute infarction. EXTRACRANIAL: The visualized portions of the orbits are unremarkable. Probable mucus retention cyst floor right max illary sinus. POST-CONTRAST: No abnormal areas of parenchymal or dural enhancement. No evidence of blood-brain barrier breakdown. CONCLUSION: No acute intracranial disease. No acute infarction. Right maxillary sinus disease Darwin Marcelo MD on February 24, 2017 at 14:42 Board Certified Radiologist. This report was verified electronically.
[2017-02-24] MEDS ORDERED: GADODIAMIDE PF 287 MG/ML 5 ML VIAL (for RAD MRI) IV ONE (15:42)
--- NOTE | 2017-02-24 17:06 | MB ---
cc: OZZIE SOTELO M.D. DATE OF CONSULTATION: 02/19/2017 REASON FOR CONSULTATION: He is seen in neurological consultation. He was admitted on 02/19/17 when he came in because of difficulty with coordination, some cognition decline. Increasing tremors and difficulty with the words. PAST MEDICAL HISTORY: The patient has a history of bipolar disorder and HIV disease. He was found to have lithium level of 2.9 and he has been treated for lithium toxicity. The patient also has history of hypertension and hyperlipidemia. MEDICATIONS: He took anti-HIV medications, bupropion, lithium. PHYSICAL EXAMINATION: On exam the patient is awake, alert, pleasant and grossly oriented. Though he had some difficulty with the very specific dates. He provides background information. His ocular movements were full. No nystagmus. Pupils equal and reactive. Visual devine full. No obvious facial weakness. Speech normal. He was in a chair being wheeled to the MRI and I did not ambulate him but seemed to have overall good strength throughout, reflexes 1+ at the elbows and knees and absent at the ankles. Plantar responses flexor. Position is preserved in the distal lower extremities. RADIOLOGIC: The CT brain initially was negative. LABORATORY FINDINGS: The white count today 6.20, hemoglobin 12.4, platelets 231 lithium level 2.9 on 02/19 and yesterdays level 0.6. Sodium, potassium all within normal. BUN initially 51 and creatinine 4.89. Today, BUN 24, creatinine 1.84. CURRENT MEDICATIONS 1. He was switched from lithium to Depakote 500 mg's a day 2. HIV meds. 3. Wellbutrin 100 mg a day. 4. Metoprolol 5. Seroquel 200 per day. 6. Clonazepam 1 mg. 7. Clonidine 8. Famotidine 9. p.r.n. medicines. ASSESSMENT/PLAN: 1. [place] toxicity. 2. HIV disease. 3. Encephalopathy which could be from both situation double as well as medications. He seems to be clearing mentally and coordination has improved. Kidney function has been improving. He is going for an MRI brain. This will be helpful in determining whether or not there is any structural disease to also account for the encephalopathy. The neck is supple and I do not think there is intracranial acute meningeal process. I will follow the neurological status. Thank you for asking us to assist in his care. MD Pérez Hameed /2:23 PM /4:56 PM
[2017-02-24 17:59] LABS: FREE T4 0.88 NG/DL (0.76-1.46)
--- NOTE | 2017-02-24 19:02 | HHI.NPPN ---
Subjective History of Present Illness 51 year old male with [place] toxicity ARF Additional Remarks He was dialyzed once. Renal function had been improving. He is non oliguric. Seen by psychiatry. Review of Systems General Constitutional: Fatigue Objective Data Data 02/23/17 02/24/17 19:00 07:00 Intake Total 360 ml Balance 360 ml Intake Oral 360 ml # Voids 3 2 # Bowel Movements 0 Vital Signs Date Time Temp Pulse Resp B/P Pulse Ox O2 Delivery O2 Flow Rate FiO2 02/24/17 16:04 97.6 76 18 115/76 100 02/24/17 12:40 96.8 76 18 111/80 99 02/24/17 08:30 99 21 02/24/17 08:20 97.2 76 18 108/73 99 02/24/17 05:16 97.5 76 20 119/69 100 02/24/17 00:14 96.7 86 20 115/88 99 02/23/17 20:10 98.4 101 20 131/95 100 -: 02/21/17 0420 02/24/17 0700 Physical Exam General Appearance: Well Developed, Well Nourished Throat Throat Exam: Oral Mucosa [place] & Moist Neck Neck Exam: Neck Supple Pulmonary Resp Exam: Clear Bilaterally, Breath Sounds Equal Cardiology CV Exam: Tachycardia Gastrointestinal/Abdomen GI Exam: Soft, Non-Tender, Bowel Sounds Present Integumentary Skin Exam: Clear Extremeties Extremities Exam: No Edema Neurologic Neuro Exam: Alert, Awake, Oriented Assessment/Plan Problem List: (1) Acute renal failure Plan: US of kidney unremarkable. ELEAZAR had been resolving. Monitor labs. doing well d/w DG Luong with Depakote d/w Mother and patient he can follow with PCP nephrology to sign off (2) [place] toxicity Plan: Admission lithium level 2.9 Improved. (3) Hyponatremia Plan: resolved. (4) Hypercalcemia Plan: resolved. Problem Qualifiers (1) Acute renal failure: Qualified Code: N17.9 - Acute renal failure, unspecified acute renal failure type (2) [place] toxicity: Qualified Code: T56.894A - [place] toxicity, undetermined intent, initial encounter Liyah Marin MD Feb 24, 2017 19:02
[2017-02-24] MEDS: CHLORHEXIDINE GLUCONATE 2 % 1 PACK (2 CLOTHS) TOP SCH (20:54)
[2017-02-24] MEDS: clonazePAM 1 MG TAB PO SCH (20:54)
[2017-02-24] MEDS: QUEtiapine FUMARATE 200 MG TAB PO SCH (20:54)
[2017-02-24] MEDS ORDERED: DIVALPROEX SODIUM E.R. 500 MG TAB PO SCH (21:00)
[2017-02-25 04:18] VITALS: BP 106/65; PULSE 74; RESP 16; TEMP 97; O2SAT 98
[2017-02-25] MEDS: SODIUM CHLOR 0.9% 1000 ML INJ 1,000 ML IV SCH (05:05)
[2017-02-25 08:03] VITALS: BP 130/86; PULSE 73; RESP 16; TEMP 97.5; O2SAT 100
[2017-02-25 08:09] LABS: BASOPHIL % 0.3 % (0.0-2.0); EOSINOPHIL # 0.1 TH/MM3 (0-0.4); EOSINOPHIL % 2.1 % (0.0-4.0); HEMATOCRIT 32.3 % (39.0-51.0); HEMO FLAGS DIFF FINAL; LYMPH % 44.9 % (9.0-44.0); LYMPHOCYTE # 2.1 TH/MM3 (1.0-4.8); MEAN CELL VOLUME 101.7 FL (80.0-100.0); MEAN CORPUSCULAR HEMOGLOBIN 34.8 PG (27.0-34.0); MEAN CORPUSCULAR HGB CONC 34.2 % (32.0-36.0); MONO % 10.3 % (0.0-8.0); NEUT % 42.4 % (16.0-70.0); PLATELET COUNT 236 TH/MM3 (150-450); RED BLOOD COUNT 3.17 MIL/MM3 (4.50-5.90); RED CELL DISTRIBUTION WIDTH 13.1 % (11.6-17.2); WHITE BLOOD COUNT 4.8 TH/MM3 (4.0-11.0)
[2017-02-25] MEDS: SODIUM CHLORIDE 0.9% FLUSH 10 ML FLUSH SCH (08:13)
[2017-02-25] MEDS: FAMOTIDINE 20 MG/2 ML VIAL IV PUSH SCH (08:14)
[2017-02-25] MEDS: NEVIRAPINE 200 MG TAB PO SCH (08:14)
[2017-02-25] MEDS: ETRAVIRINE 100 MG TAB PO SCH (08:14)
[2017-02-25] MEDS: METOPROLOL TARTRATE 25 MG TAB PO SCH (08:14)
[2017-02-25] MEDS: DOLUTEGRAVIR SODIUM 50 MG TAB PO SCH (08:14)
[2017-02-25] MEDS: DOCUSATE SODIUM 50 MG/SENNA 8.6 MG TAB PO SCH (08:15)
[2017-02-25] MEDS: HEPARIN SODIUM - SQ 10,000 UNITS/ML VIAL SQ SCH (08:15)
[2017-02-25] MEDS: buPROPion HCL 100 MG SUSTAINED RELEASE TAB PO SCH (08:15)
[2017-02-25 08:29] LABS: BICARBONATE 19.4 MEQ/L (21.0-32.0); MAGNESIUM 2.5 MG/DL (1.5-2.5); POTASSIUM 4.4 MEQ/L (3.5-5.1)
[2017-02-25 10:26] LABS: RAPID PLASMA REAGIN SCREEN NON-REACTIVE (NON-REACTVE)
[2017-02-25 12:28] VITALS: BP 111/80; PULSE 74; RESP 18; TEMP 96.8; O2SAT 99
[2017-02-25] MEDS ORDERED: DEPA500T3 PO (13:08)
--- NOTE | 2017-02-25 13:14 | HHI.DS ---
Discharge Summary Admission Date Feb 19, 2017 at 18:45 Discharge Date: Feb 25, 2017 Admitting Diagnosis acute renal failure, lithium toxicity (1) [place] toxicity Diagnosis: Principal (2) ELEAZAR (acute kidney injury) Diagnosis: Principal (3) Hypercalcemia Diagnosis: Principal (4) HIV (human immunodeficiency virus infection) Diagnosis: Principal (5) Hyponatremia Diagnosis: Principal (6) Encephalopathy Diagnosis: Principal (7) Depressed Diagnosis: Secondary Consultants Dr. Alek Harris, Psychiatry Dr. Liyah Marin, Nephrology Dr. Genie Roe, Neurology Brief History 51-year-old male came to the emergency room with history of progressive incoordination and disequilibrium. Increase forgetfulness. All the symptoms have suddenly escalated over the past 3 days. Patient has been noticing difficulty ambulating as well as doing simple activities like drinking water since he is spilling it since he is so shaky. In the emergency department he was found to be tachycardic, and shivering. His laboratory workup revealed acute kidney failure with creatinine of 9 and elevated lithium level. He is admitted to critical care unit, dialysis catheter was placed emergently and patient is undergoing urgent hemodialysis. CBC/BMP: 02/25/17 0643 02/25/17 0643 Significant Findings Laboratory Tests Test 02/24/17 02/24/17 02/25/17 07:00 16:51 06:43 Chloride Level 112 MEQ/L 114 MEQ/L (98-107) (98-107) Carbon Dioxide Level 19.1 MEQ/L 19.4 MEQ/L (21.0-32.0) (21.0-32.0) Blood Urea Nitrogen 24 MG/DL (7-18) 22 MG/DL (7-18) Creatinine 1.84 MG/DL 1.55 MG/DL (0.60-1.30) (0.60-1.30) Estimat Glomerular Filtration 39 ML/MIN (>89) 47 ML/MIN (>89) Rate Folate GREATER THAN 20.0 NG/ML (3.1-17.5) Red Blood Count 3.17 MIL/MM3 (4.50-5.90) Hemoglobin 11.0 GM/DL (13.0-17.0) Hematocrit 32.3 % (39.0-51.0) Mean Corpuscular Volume 101.7 FL (80.0-100.0) Mean Corpuscular Hemoglobin 34.8 PG (27.0-34.0) Mean Platelet Volume 6.8 FL (7.0-11.0) Lymphocytes (%) (Auto) 44.9 % (9.0-44.0) Monocytes (%) (Auto) 10.3 % (0.0-8.0) Calcium Level 8.4 MG/DL (8.5-10.1) PE at Discharge General: NAD, confused Chest: CTA Cardiac: Regular Abd: +BS, soft ND/NT Ext: No edema Hospital Course (1) ELEAZAR (acute kidney injury) Status: Acute Plan: - Pt is a 51 y/o with HIV, bipolar disorder, and HTN - He presented with cognitive decline/tremors/disequilibrium/ataxia and was found to have ELEAZAR, lithium toxicity, hypercalcemia/hyponatremia. - He was admitted to ICU under the care of the Intensivists and was seen by Nephrology - Pt received HD on 02/20 for the lithium toxicity and now urinating with improving Cr and decreasing [place] level - Pt was moved out of ICU and care was transferred to the [facility] Hospitalist team on 02/21 - Pt's gait abnormalities from lithium toxicity continues to improve. - PT has recommended home PT which I have arranged - discharge to home with [facility] and home PT. Pt/family decline SNF - Psychiatry consulted for advice on psychiatric meds and alternative med to lithium. They recommended the pt to be started on Klonopin 1mg HS, continue on Seroquel 200mg HS and start Depakote ER 500mg - Case d/w Nephrology (02/24/17). Dr. Marin agrees with starting on depakote. - Pts HIV medications were resumed. - AMS likely d/t HIV encephalopathy and lithium toxicity - Pt seen by Neurology, Dr. Roe. He agreed that encephalopathy likely d/t HIV and lithium toxicity. - Brain MRI (02/24/17) showed NO acute findings - TSH, free T4, b12, rpr, ammonia level --> WNL - Anticipate that pts AMS will resolve to baseline in 6 weeks - Pt to f/u with Neurology, Dr. Roe, in 4 weeks outpt - see discharge orders (2) HIV (human immunodeficiency virus infection) - resume outpt medications and dosing upon discharge - f/u with Dr. Gomes in 1 week (3) Hypercalcemia Status: Acute Plan: see above (4) [place] toxicity Status: Acute Plan: see above (5) Hyponatremia Status: Acute Plan: see above (6) Depressed Status: Chronic Plan: see above Pt Condition on Discharge: Stable Discharge Disposition: Disch w/ Home Health Serv Discharge Instructions DIET: Follow Instructions for: As Tolerated, No Restrictions Activities you can perform: Regular-No Restrictions Follow up Referrals: Neurology - 4 Weeks with Genie Wild MD PCP Follow-up - [address] Michael Gomes Psychiatry Adult - [address] Taz Lopez New Medications: Clonazepam (Klonopin) 1 Mg Tab 1 MG PO HS bipolar #30 Ref 0 TAB Divalproex ER (Depakote ER) 500 Mg Ирина 500 MG PO HS bipolar #30 Ref 0 TAB Continued Medications: Ascorbic Acid/Ascorbate Sodium (Vitamin C 500 mg Wafer) 500 Mg Wafer TAB DAILY Aspirin DR (Aspirin EC) 81 Mg Tabdr 81 MG PO Mon, Wed, Fri Ref 0 TAB B-Complex Vitamins (B Complex) 1 Cap 1 CAP PO DAILY Nutritional Supplement #30 Ref 0 CAP Bupropion HCl ER 12 HR (Bupropion HCl ER 12 HR) 100 Mg Tab 100 MG PO DAILY May increase to twice a day if needed TAB Dolutegravir (Tivicay) 50 Mg Tab 50 MG PO DAILY Mgmt Viral Infection #30 Ref 0 TAB Etravirine (Intelence) 200 Mg Tab 200 MG PO BID Mgmt Viral Infection Ref 0 TAB Lamivudine (Lamivudine) 300 Mg Tab 300 MG PO DAILY Mgmt Viral Infection #30 Ref 0 TAB Metoprolol Tartrate (Metoprolol Tartrate) 25 Mg Tab 25 MG PO BID #60 Ref 0 TAB Multiple Vitamin (Thera-Tabs) 1 Tab Tab TAB DAILY Nevirapine (Viramune) 200 Mg Tab 200 MG PO BID Mgmt Viral Infection #60 Ref 0 TAB Quetiapine Fumarate (Quetiapine Fumarate ER) 200 Mg Tab PO HS Discontinued Medications: Acyclovir (Acyclovir) 800 Mg Tab 800 MG PO DAILY Mgmt Viral Infection Ref 0 TAB Atorvastatin (Atorvastatin) 10 Mg Tab 10 MG PO HS PRN Mon, Wed, Fri #30 Ref 0 TAB Hydrochlorothiazide (Hydrochlorothiazide) 25 Mg Tab 12.5 MG PO DAILY #30 Ref 0 TAB Lisinopril (Lisinopril) 20 Mg Tab 20 MG PO DAILY #30 Ref 0 TAB [place] Carbonate ([place] Carbonate) 300 Mg Cap 300 MG PO BID Ref 0 CAP ([trilipix]) 135 MG DAILY ([truvada]) PO DAILY Robby Castillo DO Feb 25, 2017 13:14
[2017-02-25] MEDS ORDERED: CLON1 PO (13:22)
== END 2017-02-25 14:37 | disposition home health service (06) | DRG 682 ==
LOC: NEPE 15:58 → NEDA 18:45 → N03A 20:54 → N05B 02-21 17:19
PROVIDERS: ADMIT Hospitalist; ATTEND Hospitalist
PROC: 02HV33Z Insertion of Infusion Device into Superior Vena Cava, Percutaneous Approach (ICD-10-PCS; principal; 2017-02-19)
PROC: B548ZZA Ultrasonography of Superior Vena Cava, Guidance (ICD-10-PCS; 2017-02-19)
PROC: 5A1D00Z (ICD-10-PCS; 2017-02-19)
DX: N17.0 Acute kidney failure with tubular necrosis (principal); G93.40 Encephalopathy, unspecified; B20 Human immunodeficiency virus [HIV] disease; E87.1 Hypo-osmolality and hyponatremia; T43.595A Adverse effect of other antipsychotics and neuroleptics, initial encounter; F31.9 Bipolar disorder, unspecified; R27.0 Ataxia, unspecified; E86.0 Dehydration; I10 Essential (primary) hypertension; E78.5 Hyperlipidemia, unspecified; E83.52 Hypercalcemia
CPT/HCPCS: 51702; 70450; 70553; 71010; 76775; 80048; 80053; 80074; 80076; 80178; 81001; 82140; 82607; 82746; 83605; 83735; 84100; 84155; 84439; 84443; 85025; 85610; 85730; 86592; 87040; 87641; 90935; 93005; 96374; A9579; J1580; J1644; J2060; J2270; J7030